=== PATIENT | female | born 1935 | race Caucasian/White ===

== ENCOUNTER 2017-11-08 23:00 | Outpatient (CLI) | END 2017-11-08 23:01 | disposition home or self-care (01) | LOC: AMBL 23:00 | PROVIDERS: ATTEND Family Medicine | DX: R19.7 Diarrhea, unspecified (principal); R07.9 Chest pain, unspecified; F03.90 Unspecified dementia, unspecified severity, without behavioral disturbance, psychotic disturbance, mood disturbance, and anxiety ==

== ENCOUNTER 2018-03-03 09:23 | Emergency (ER) | payer OTHER ==
[2018-03-03 09:38] VITALS: BP 156/84; TEMP 97.5; BMI 23.1
--- NOTE | 2018-03-03 09:49 | ED.PDOC ---
General ED Provider: Dr. ITALIA GONZALEZ Chief Complaint: Fall Stated Complaint: Facial forehead pain. Patient resides AT [facility]. 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 Patient suffers from dementia and is unsure of what happened to her. She denies pain. Time Seen by Physician: 09:35 Mode of Arrival: Walk-In Information Source: Patient, Family Exam Limitations: No limitations, Clinical condition, Dementia Primary Care Provider: ITALIA CARRERA Nursing and Triage Documentation Reviewed and Agree: Yes Reviewed sepsis parameters & appropriate labs ordered?: Yes System Inflammatory Response Syndrome: Not Applicable Sepsis Protocol: For patient's 13 years and over: Temp is 96.8 and below OR 101 and greater Pulse >90 BPM Resp >20/minute Acutely Altered Mental Status Are patient's symptoms suggestive of a new infection, such as: -Pneumonia -Skin, Soft Tissue -Endocarditis -UTI -Bone, Joint Infection -Implantable Device -Acute Abdominal Infection -Wound Infection -Meningitis -Blood Stream Catheter Infection -Unknown System Inflammatory Response Syndrome: Not Applicable Trauma/Injury Complaint Exam - Facial Injury Complaint/Exam Location of Pain: Reports: Left, Forehead, Eyebrow, Nose Mechanism of Injury: Reports: Trauma Symptoms Are: Still present Onset of Pain: Reports: Prior to arrival Initial Severity: Moderate Current Severity: Moderate Location: Reports: Discrete Character: Reports: Unable to describe (Denies pain ) Associated Signs and Symptoms: Reports: Swelling, Bruising Related History: Denies: Similar episode, Occupational injury Related Surgical History: Reports: None Facial Findings: Present: Swelling, Ecchymosis Differential Diagnoses: Contusion, Fracture Review of Systems - Review Of Systems Constitutional: Reports: No symptoms Eyes: Reports: Other (Lt orbital swelling and discomfort) Ears, Nose, Mouth, Throat: Reports: No symptoms, Nose pain Respiratory: Reports: No symptoms Cardiac: Reports: No symptoms GI: Reports: No symptoms : Reports: No symptoms Musculoskeletal: Reports: No symptoms Skin: Reports: No symptoms Neurological: Reports: Cognitive dysfunction Endocrine: Reports: No symptoms Hematologic/Lymphatic: Reports: No symptoms All Other Systems: Reviewed and Negative Past Medical History - Past Medical History Previously Healthy: Yes Endocrine: Reports: None Cardiovascular: Reports: None Respiratory: Reports: None Hematological: Reports: None Gastrointestinal: Reports: None Genitourinary: Reports: None Neuro/Psych: Reports: None Musculoskeletal: Reports: None Cancer: Reports: None Last Menstrual Period: NONE - Surgical History General Surgical History: Reports: None - Family History Family History: Reports: None - Social History Smoking Status: Never smoker Hx Substance Use: No Alcohol Screening: None Physical Exam - Physical Exam Appearance: Well-appearing, No pain distress, Well-nourished Ill-appearing: None Pain Distress: None Eyes: PIPPA (Lt periorbital edema, supraorbital edema-tenderness, ecchymoses to upper/lower eyebrow), EOMI, Conjunctiva clear ENT: Ears normal, Nose normal, Oropharynx normal Respiratory: Airway patent, Breath sounds clear, Breath sounds equal, Respirations nonlabored Cardiovascular: RRR, Pulses normal, No rub, No murmur GI/: Soft, Nontender, No masses, Bowel sounds normal, No Organomegaly Musculoskeletal: Normal strength, ROM intact, No edema, No calf tenderness Skin: Warm, Dry, Normal color Neurological: Sensation intact, Motor intact, Reflexes intact, Cranial nerves intact, Alert, Oriented Psychiatric: Affect appropriate, Mood appropriate Interpretation - Radiology Interpretation Radiology Results: No acute changes (forehead swelling -contusion) Exam Interpreted: CT Scan Critical Care Note - Critical Care Note Total Time (mins): 30 Course - Course Hematology/Chemistry: 03/03/18 10:10 03/03/18 10:10 Orders, Labs, Meds: Lab Review 03/03/18 03/03/18 10:10 10:10 WBC 10.23 H RBC 3.60 L Hgb 10.8 L Hct 33.5 L MCV 93.1 MCH 30.0 MCHC 32.2 RDW Coeff of Zena 17.6 H Plt Count 153 Immature Gran % (Auto) 2.7 Neut % (Auto) 76.4 Lymph % (Auto) 15.9 [place] % (Auto) 4.1 Eos % (Auto) 0.1 Baso % (Auto) 0.8 Immature Gran # (Auto) 0.3 Neut # (Auto) 7.8 H Lymph # (Auto) 1.6 [place] # (Auto) 0.4 Eos # (Auto) 0.0 Baso # (Auto) 0.1 Sodium 141 Potassium 3.8 Chloride 105 Carbon Dioxide 25 Anion Gap 14.8 BUN 14 Creatinine 0.86 Estimated GFR (MDRD) 63.00 BUN/Creatinine Ratio 16.27 Glucose 138 H Calcium 9.5 Total Bilirubin 0.4 AST 18 ALT 12 Alkaline Phosphatase 79 Total Protein 7.2 Albumin 3.5 Globulin 3.7 Albumin/Globulin Ratio 0.95 Orders Category Date Time Status EKG-(ED ONLY) Stat CARDIO 03/03/18 09:49 Completed CBC W/ AUTO DIFF Stat LAB 03/03/18 10:10 Completed CMP [COMPREHENSIVE METABOLIC PANEL] Stat LAB 03/03/18 10:10 Completed UA [URINALYSIS C & S IF INDICATED] Stat LAB 03/03/18 09:[address] CERVICAL SPINE W/O CONTRAST Stat RADS 03/03/18 10:[address] HEAD W/O CONTRAST Stat RADS 03/03/18 10:[address] MAXILLOFACIAL W/O CONTRAST Stat RADS 03/03/18 10:16 Completed Vital Signs: Temp Pulse Resp BP Pulse Ox 03/03/18 09:23 97.5 F L 92 H 18 156/84 H 96 Departure - Departure Time of Disposition: 11:20 Disposition: DISCH/TSF INST NOT DEFINED Discharge Problem: Forehead contusion, Periorbital contusion of right eye, Periorbital contusion of left eye, Dementia Instructions: Fall Prevention for Older Adults (ED), Contusion in Adults (ED) Condition: Fair Pt referred to PMD for follow-up: Yes IPMP verified?: No Additional Instructions: Monitor patient when in her room alone q 30 min - 1 hr if possible Consider wireless monitor Ice to area of contusion Follow up PCP Allergies/Adverse Reactions: Allergies No Known Allergies Allergy (Verified 03/03/18 09:34) Home Medications: Ambulatory Orders Levothyroxine Sodium [Synthroid] 50 mcg PO QDAC 03/03/18 Memantine HCl [Namenda Xr] 28 mg PO DAILY 03/03/18 Mirtazapine [Remeron] 15 mg PO BEDTIME 03/03/18 Transfer Form Completed: No (N/I) Disposition Discussed With: Patient, Family
--- NOTE | 2018-03-03 10:44 | CT ---
EXAM: CT of the head without contrast History: Head trauma. Technique: Multiplanar CT images through the head were obtained without the administration of IV con trast Findings: The visualized paranasal sinuses and mastoid air cells are clear in general. No acute rosie varial abnormality. Large left frontal scalp hematoma. Intracranially there is diffuse atrophy. No dominant mass or midline shift. No hydrocephalous. No acute intracranial hemorrhage or abnormal extraaxial fluid collections. Periventricular and subcorti rosie white matter hypodensities. Impression: 1. No acute intracranial process. 2. Atrophy and chronic small vessel ischemic disease. 3. Large frontal scalp hematoma.
--- NOTE | 2018-03-03 10:46 | CT ---
EXAM: CT maxillofacial region without contrast History: Facial trauma. Technique: Multiplanar CT images through the maxillofacial region were obtained without the administ ration of IV contrast Findings: Large frontal scalp hematoma. Orbits are intact. The visualized intracranial contents de monstrate no acute findings. Paranasal sinuses are clear. Bilateral ostiomeatal units are not occlu ded. No acute fracture or dislocation. Degenerative changes of the bilateral temporomandibular join ts and worse on the right. Mastoid air cells are clear. Impression: 1. No acute osseous abnormality. 2. Clear paranasal sinuses. 3. Large frontal scalp hematoma.
--- NOTE | 2018-03-03 10:50 | CT ---
EXAM: CT of the cervical spine without contrast History: Head and neck trauma. Technique: Multiplanar CT images through the cervical spine were obtained without the administration of IV contrast Findings: Biapical lung scarring. The visualized airway remains patent. Reversal of the normal cervical lordosis. No acute fracture or subluxation of the cervical spine. N o prevertebral soft tissue swelling. Predental space is not widened. Moderate to severe multilevel degenerative disc space narrowing with endplate sclerosis and osteophyte formation. Mild multilevel bony central canal stenosis secondary to posterior disc osteophyte complexes. Multilevel bilateral b kate neural foraminal narrowing secondary to uncovertebral and facet hypertrophy. Impression: No acute osseous abnormality of the cervical spine. Degenerative changes
== END 2018-03-03 11:46 | disposition other institution (70) ==
LOC: ED 09:23
DX: S00.83XA Contusion of other part of head, initial encounter (principal); S00.12XA Contusion of left eyelid and periocular area, initial encounter; S00.11XA Contusion of right eyelid and periocular area, initial encounter; S00.33XA Contusion of nose, initial encounter; F03.90 Unspecified dementia, unspecified severity, without behavioral disturbance, psychotic disturbance, mood disturbance, and anxiety; D64.9 Anemia, unspecified
CPT/HCPCS: 36415; 80053; 81001; 85025; 93005; 93010; 99283

== ENCOUNTER 2018-10-06 04:55 | Outpatient (CLI) ==
[2018-04-14 12:36] VITALS: BMI 23.1
== END 2018-10-06 05:09 | disposition short-term general hospital (02) ==
LOC: AMBL 04:55
PROVIDERS: ATTEND Family Medicine
DX: S01.81XA Laceration without foreign body of other part of head, initial encounter (principal); F03.90 Unspecified dementia, unspecified severity, without behavioral disturbance, psychotic disturbance, mood disturbance, and anxiety; W19.XXXA Unspecified fall, initial encounter

== ENCOUNTER 2021-10-05 10:02 | Inpatient (IN) ==
--- NOTE | 2021-10-05 10:30 | ED.PDOC ---
General ED Provider: Dr. JUANI HICKMAN Chief Complaint: Fever Stated Complaint: Fever, weak, cough, poor appetite. Has had her vaccines. Lives in assisted living. DNR. Time Seen by Provider: 10/05/21 10:30 Mode of Arrival: Wheelchair Information Source: Patient and Family (Niece (POA)) Exam Limitations: Dementia Primary Care Provider: ITALIA MARAVILLA Nursing and Triage Documentation Reviewed and Agree: Yes Does patient meet sepsis criteria?: No System Inflammatory Response Syndrome: Not Applicable Sepsis Protocol: For patient's 13 years and over: Temp is 96.8 and below OR 101 and greater Pulse >90 BPM Resp >20/minute Acutely Altered Mental Status Are patient's symptoms suggestive of a new infection, such as: -Pneumonia -Skin, Soft Tissue -Endocarditis -UTI -Bone, Joint Infection -Implantable Device -Acute Abdominal Infection -Wound Infection -Meningitis -Blood Stream Catheter Infection -Unknown Respiratory Complaint Exam Respiratory Complaint/Exam Onset/Duration: Few days Symptoms Are: Still present Timing: Constant Initial Severity: Moderate Current Severity: Moderate Location: Chest Character: Reports Non-productive cough Aggravating: Reports None Alleviating: Reports None Associated Signs and Symptoms: Reports Fever and Vomiting History of Healthcare-Acquired Pneumonia: No Related Surgical History: Reports None Pulmonary Embolism Risk Factors: None Pseudomonas Risk Factors: Reports None Tuberculosis Risk Factors: Reports None Status Asthmaticus Risk Factors: Reports None Home Oxygen Use: Yes Recent Stress Test: No Recent Echo/LV Function: No Current Antibiotic Use: No Current Asthma Medication Use: No Respiratory Distress: Mild Inadequate Respiratory Effort: No Dysphagia Present: No Stridor Present: No Diminished Breath Sounds: Yes Sinus Tenderness: None Grunting Respirations: No Kussmaul Respirations: No Review of Systems Review Of Systems Constitutional: Reports Malaise and Weakness Ears, Nose, Mouth, Throat: Reports No symptoms Respiratory: Reports Cough Cardiac: Reports No symptoms GI: Reports Nausea and Poor appetite : Reports No symptoms Musculoskeletal: Reports No symptoms Skin: Reports No symptoms Neurological: Reports No symptoms and Cognitive dysfunction Endocrine: Reports No symptoms Hematologic/Lymphatic: Reports No symptoms All Other Systems: Reviewed and Negative [facility] Medical History (Updated 10/05/21 @ 15:30 by KWASI KIDD RN) Thyroid activity decreased Social History (Updated 10/05/21 @ 15:30 by KWASI KIDD RN) Smoking and tobacco status: Never smoker Surgical History (Updated 10/05/21 @ 15:30 by KWASI KIDD RN) H/O: hysterectomy Female Reproductive History Menstrual Hx Hysterectomy: No Hx Tubal Ligation: No Physical Exam Physical Exam Appearance: Reports Ill-appearing and Thin Ill-appearing: Moderate Pain Distress: None Eyes: Reports PIPPA ENT: Reports Oropharynx normal Neck: Supple Respiratory: Reports Airway patent and Rhonchi Cardiovascular: Reports RRR and Pulses normal GI/: Reports Soft and Nontender Musculoskeletal: Reports Normal strength (for age) and ROM intact Skin: Reports Warm and Dry Neurological: Reports Sensation intact, Motor intact and Alert (baseline dementia without change per POA) Psychiatric: Reports Affect appropriate and Mood appropriate Interpretation Radiology Interpretation Radiology Interpretation By: Radiologist Radiology Results: Positive Exam Interpreted: Portable CXR Xray Comments: LLL infiltrate Radiology Interpretation By: Radiologist Radiology Results: Positive Exam Interpreted: CT Scan Xray Comments: abd/pel - neg except LLL pneumonia EKG Interpretation Time of EKG #1: 14:34 Rate: Normal Rhythm: Sinus Ectopy: None [place]: NL ST Segment: Normal Interpretation: WNL Physician Notification Case Discussed Physician Notified: Dr. Maravilla Time of Notification: 14:00 Comments: Admit with IV abx. Admit/Transition Orders Entered by ED Provider: Yes Admit To: Inpatient Critical Care Note Critical Care Note Total Critical Care Time (mins): 30 Comments: Severe infection with pneumonia. Course Course Hematology/Chemistry: 10/05/21 10:55 10/05/21 10:55 Orders, Labs, Meds: Lab Review 10/05/21 10/05/21 10/05/21 10:40 10:40 10:55 WBC 47.61 H RBC 3.25 L Hgb 9.7 L Hct 29.6 L MCV 91.1 MCH 29.8 MCHC 32.8 RDW Coeff of Zena 17.9 H Plt Count 247 Neutrophils % (Manual) 82.0 H Band Neutrophils % 4.0 Lymphocytes % (Manual) 6.0 L Monocytes % (Manual) 6.0 Myelocytes % 2.0 H Anisocytosis Not present Sodium Potassium Chloride Carbon Dioxide Anion Gap BUN Creatinine Estimated GFR (MDRD) BUN/Creatinine Ratio Glucose Lactic Acid Calcium Total Bilirubin AST ALT Alkaline Phosphatase Total Protein Albumin Globulin Albumin/Globulin Ratio Procalcitonin Urine Color Urine Clarity Urine pH Ur Specific [place] Urine Protein Urine Glucose (UA) Urine Ketones Urine Blood Urine Nitrite Urine Bilirubin Urine Urobilinogen Ur Leukocyte Esterase Influ A Molecular Assay Negative by naat Influ B Molecular Assay Negative by naat SARS CoV-2 RNA Rapid TADEO Negative 10/05/21 10/05/21 10/05/21 10:55 10:55 10:55 WBC RBC Hgb Hct MCV MCH MCHC RDW Coeff of Zena Plt Count Neutrophils % (Manual) Band Neutrophils % Lymphocytes % (Manual) Monocytes % (Manual) Myelocytes % Anisocytosis Sodium 136.9 Potassium 3.80 Chloride 104.2 Carbon Dioxide 25.2 Anion Gap 11.30 BUN 11.0 Creatinine 0.92 Estimated GFR (MDRD) 58.00 BUN/Creatinine Ratio 11.95 Glucose 122.5 H Lactic Acid 1.93 Calcium 8.84 Total Bilirubin 0.63 AST 28.9 ALT 21.5 Alkaline Phosphatase 110.5 Total Protein 6.97 Albumin 3.74 Globulin 3.23 Albumin/Globulin Ratio 1.15 Procalcitonin 0.31 H Urine Color Urine Clarity Urine pH Ur Specific [place] Urine Protein Urine Glucose (UA) Urine Ketones Urine Blood Urine Nitrite Urine Bilirubin Urine Urobilinogen Ur Leukocyte Esterase Influ A Molecular Assay Influ B Molecular Assay SARS CoV-2 RNA Rapid TADEO 10/05/21 11:55 WBC RBC Hgb Hct MCV MCH MCHC RDW Coeff of Zena Plt Count Neutrophils % (Manual) Band Neutrophils % Lymphocytes % (Manual) Monocytes % (Manual) Myelocytes % Anisocytosis Sodium Potassium Chloride Carbon Dioxide Anion Gap BUN Creatinine Estimated GFR (MDRD) BUN/Creatinine Ratio Glucose Lactic Acid Calcium Total Bilirubin AST ALT Alkaline Phosphatase Total Protein Albumin Globulin Albumin/Globulin Ratio Procalcitonin Urine Color Yellow Urine Clarity Clear Urine pH 6.0 Ur Specific [place]bilt <=1.005 Urine Protein Negative Urine Glucose (UA) Negative Urine Ketones Negative Urine Blood Negative Urine Nitrite Negative Urine Bilirubin Negative Urine Urobilinogen 1.0 H Ur Leukocyte Esterase Negative Influ A Molecular Assay Influ B Molecular Assay SARS CoV-2 RNA Rapid TADEO Orders Category Date Time Status ADMIT PATIENT INPATIENT .TO MEDSURG (NON-MONITORED ADMISSION 10/05/21 13:19 Active BED) EKG-(IP & OP ONLY) Stat CARDIO 10/05/21 13:22 Completed NEBULIZER TREATMENT Routine CARDIO 10/05/21 13:25 Active SPUTUM INDUCTION PRN CARDIO 10/05/21 13:30 Ordered ACTIVITY .Up With Assistance CARE 10/05/21 13:21 Completed INTAKE & OUTPUT Q8HR CARE 10/05/21 13:22 Completed REMINDER:Breath Sounds&Sputum Production BID CARE 10/05/21 13:22 Active VITAL SIGNS Q8HR CARE 10/05/21 13:22 Active REGULAR DIET DIETARY 10/05/21 Dinner Ordered BLOOD CULTURE (ED ONLY) Stat LAB 10/05/21 12:42 Received BMP [BASIC METABOLIC PANEL] Stat LAB 10/06/21 06:00 Ordered C-REACTIVE PROTEIN Stat LAB 10/05/21 10:55 Received CBC W/ AUTO DIFF Stat LAB 10/05/21 10:55 Completed CBC W/ AUTO DIFF Stat LAB 10/06/21 06:00 Ordered COMPREHENSIVE METABOLIC PANEL Stat LAB 10/05/21 10:55 Completed FLU A/B MOLECULAR Stat LAB 10/05/21 10:40 Completed LACTIC ACID Stat LAB 10/05/21 10:55 Completed MANUAL DIFFERENTIAL Stat LAB 10/05/21 10:55 Completed PROCALCITONIN Stat LAB 10/05/21 10:55 Completed SARS COV-2 RNA RAPID TADEO Stat LAB 10/05/21 10:40 Completed URINALYSIS C & S IF INDICATED Stat LAB 10/05/21 11:55 Completed Albuterol Sulfate 0.083% Neb [Albuterol 0.083% Neb] MEDS 10/05/21 13:21 Active 2.5 mg NEB RTQ6H PRN Piperacillin Sodium/Tazobactam [Zosyn 3.375 gm] 3.375 MEDS 10/05/21 13:04 Discontinued gm 0.9 % Sodium Chloride [Sodium Chloride] 50 ml IV ONCE Sodium Chloride 0.9% [Sodium Chloride] 1,000 ml MEDS 10/05/21 10:37 Discontinued IV 250 mls/hr Sodium Chloride 0.9% [Sodium Chloride] 1,000 ml MEDS 10/05/21 13:30 Active IV 75 mls/hr Vancomycin 1 gm MEDS 10/05/21 13:27 Discontinued 0.9 % Sodium Chloride [Sodium Chloride] 250 ml IV ONCE CHEST, 1V AP ONLY Stat RADS 10/05/21 10:37 Completed Medications Generic Name Dose Route Start Last Admin Trade Name Freq PRN Reason Stop Dose Admin Albuterol Sulfate 2.5 mg 10/05/21 13:21 Albuterol Sulfate 0.083% Vial.Neb NEB RTQ6H PRN Wheezing Divalproex Sodium 250 mg 10/05/21 21:00 Divalproex Sodium 250 Mg Tablet. PO BID LEE ANN Sodium Chloride 1,000 mls @ 75 mls/hr 10/05/21 13:30 10/05/21 18:46 Sodium Chloride IV 75 mls/hr .[id number] LEE ANN Administration Vancomycin HCl 1 gm/ Sodium 250 mls @ 250 mls/hr 10/06/21 09:00 Chloride IV 10/09/21 08:59 DAILY LEE ANN CEFEPIME 2 GM/D5W 2 gm in 50 mls @ 100 mls/hr 10/05/21 21:00 Maxipime 2 Gm/50 Ml D5w IV 10/08/21 20:59 Q12HR LEE ANN Levothyroxine Sodium 50 mcg 10/06/21 06:30 Levothyroxine Sodium 50 Mcg Tablet PO QDAC LEE ANN Non-Formulary Medication 20 mg 10/05/21 21:00 Melatonin PO BEDTIME LEE ANN Pantoprazole Sodium 40 mg 10/05/21 21:00 Pantoprazole Sodium 40 Mg Tablet. PO BEDTIME LEE ANN Quetiapine Fumarate 25 mg 10/05/21 15:00 10/05/21 17:07 Quetiapine Fumarate 25 Mg Tablet PO Not Given TID LEE ANN Trazodone HCl 50 mg 10/05/21 21:00 Trazodone Hcl 50 Mg Tablet PO BEDTIME LEE ANN Discontinued Medications Generic Name Dose Route Start Last Admin Trade Name Freq PRN Reason Stop Dose Admin Sodium Chloride 1,000 mls @ 250 mls/hr 10/05/21 10:37 10/05/21 11:09 Sodium Chloride IV 10/05/21 14:36 250 mls/hr .Q4H STA Administration Piperacillin Sod/Tazobactam 50 mls @ 50 mls/hr 10/05/21 13:04 10/05/21 13:10 Sod 3.375 gm/ Sodium Chloride IV 10/05/21 14:03 50 mls/hr ONCE ONE Administration Vancomycin HCl 1 gm/ Sodium 250 mls @ 250 mls/hr 10/05/21 13:27 10/05/21 15:32 Chloride IV 10/05/21 14:26 250 mls/hr ONCE ONE Administration Lorazepam 0.5 mg 10/05/21 14:12 10/05/21 14:19 Lorazepam Inj 2 Mg/Ml Vial IVP 10/05/21 14:13 0.5 mg ONCE ONE Administration Non-Formulary Medication 3 mg 10/05/21 21:00 Melatonin PO BEDTIME LEE ANN Vital Signs: Temp Pulse Resp BP Pulse Ox 10/05/21 10:03 98.4 F 69 18 111/55 L 98 Discharge Plan Discharge Patient Disposition: ADMITTED INPATIENT Discharge Problem: Pneumonia Qualifiers: Pneumonia type: due to unspecified organism Laterality: left Lung location: lower lobe of lung Qualified Code(s): J18.9 - Pneumonia, unspecified organism Leukocytosis, unspecified Qualifiers: Leukocytosis type: unspecified Qualified Code(s): D72.829 - Elevated white blood cell count, unspecified ED Provider: JUANI HICKMAN Condition: Stable Physician Progress Note: Pneumonia, COVID neg, marked leukocytosis (47 K), so high that consider a leukemia in addition to the pneumonia. See orders. ]
[2021-10-05] MEDS ORDERED: SODIUM CHLORIDE 1,000 ML IV STA (10:37)
[2021-10-05 11:04] LABS: HEMATOCRIT 29.6 % (37.0-47.0); HEMOGLOBIN 9.7 g/dl (12.0-16.0); MEAN CORPUSCULAR HEMOGLOBIN 29.8 pg (27.0-31.0); MEAN CORPUSCULAR HGB CONC 32.8 (31.8-35.4); MEAN CORPUSCULAR VOLUME 91.1 fl (81.0-99.0); PLATELET COUNT 247 10^3/uL (140-440); RDW COEFFICIENT OF VARIATION 17.9 % (11.6-14.8); RED BLOOD COUNT 3.25 10^6/ul (4.20-5.40); WHITE BLOOD COUNT 47.61 K/ul (4.6-10.2)
[2021-10-05 11:14] LABS: ALANINE AMINOTRANSFERASE 21.5 U/L (0-35); ALBUMIN 3.74 g/dL (3.5-5.0); ALKALINE PHOSPHATASE 110.5 U/L (53-141); ASPARTATE AMINO TRANSFERASE 28.9 U/L (14-36); BILIRUBIN,TOTAL 0.63 mg/dL (0.2-1.3); CALCIUM 8.84 mg/dL (8.4-10.2); CARBON DIOXIDE 25.2 mmol/L (22-30.0); CHLORIDE 104.2 mmol/L (98-107); CREATININE 0.92 mg/dL (0.60-1.30); GLUCOSE 122.5 mg/dL (74-106); POTASSIUM 3.8 mmol/L (3.5-5.1); SODIUM 136.9 mmol/L (134.5-145); TOTAL PROTEIN 6.97 g/dL (6.3-8.2)
[2021-10-05 11:19] LABS: ANISOCYTOSIS NOT PRESENT (NOT PRESENT)
[2021-10-05 11:35] LABS: MOLECULAR FLU A NEGATIVE BY NAAT (NEGATIVE); MOLECULAR FLU B NEGATIVE BY NAAT (NEGATIVE)
--- NOTE | 2021-10-05 12:03 | DI ---
EXAM: CHEST FRONTAL VIEW HISTORY: Cough COMPARISON: 03/02/2021 FINDINGS: Prominent heart size is stable. There is mild density in the left base which could repres ent regional pneumonia. No vascular congestion, visible pleural fluid or pneumothorax. IMPRESSION: 1. Mild density in the left base could represent pneumonia.
[2021-10-05 12:08] LABS: BILIRUBIN,URINE Negative (NEGATIVE); CLARITY,URINE Clear (CLEAR); COLOR,URINE Yellow (YELLOW); GLUCOSE, URINE (UA) Negative (NEGATIVE); KETONES,URINE Negative (NEGATIVE); LEUKOCYTE ESTERASE ,URINE Negative (NEGATIVE); NITRITE,URINE Negative (NEGATIVE); PROTEIN,URINE Negative (NEGATIVE); URINE, BLOOD Negative (NEGATIVE)
[2021-10-05] MEDS ORDERED: ROCEPHIN 1 GM/50 ML D5W 1 GM/50 ML BAG IV ONE (12:49)
[2021-10-05] MEDS ORDERED: CATAPRES PO ONE (12:59)
[2021-10-05] MEDS ORDERED: ZOSYN 3.375 GM 3.375 GM in SODIUM CHLORIDE 50 ML IV ONE (13:04)
[2021-10-05] MEDS ORDERED: ALBUTEROL 0.083% NEB NEB PRN (13:21)
[2021-10-05] MEDS ORDERED: VANCOMYCIN 1 GM in SODIUM CHLORIDE 250 ML IV ONE (13:27)
[2021-10-05 13:59] LABS: RSV MOLECULAR NEGATIVE BY NAAT (NEGATIVE)
[2021-10-05] MEDS ORDERED: ATIVAN IVP ONE (14:12)
[2021-10-05] MEDS ORDERED: ATIVAN 1 ML ONE (14:14)
--- NOTE | 2021-10-05 14:48 | CT ---
EXAM: CT ABDOMEN AND PELVIS HISTORY: Vomiting and diarrhea TECHNIQUE: CT abdomen and pelvis without intravenous contrast. Images were reconstructed using 3 mm section thickness. Reformations were prepared. COMPARISON: 08/25/2019 FINDINGS: Diagnostic limitations exist without including intravenous contrast enhanced images. Artifact from t he upper extremities remaining within the scanning field of view and motion degrades image quality. The there is a stable 17 mm water attenuation lesion of the anterior right hepatic lobe most consiste nt with a cyst. Spleen is within normal limits. No gallbladder, pancreatic or adrenal pathology arcelia ntified. Kidneys have a no evidence of obstruction or calculi. There is mild to moderate atheroscle rotic disease. No lymphadenopathy is suggested. Stomach is within normal limits. An appendix is no t seen. Nonobstructive bowel gas pattern. Urinary bladder is normal. No uterus is seen. A there i s no ascites or inflammatory infiltration of the abdominal fat. No abdominal wall hernia. Bones rev eal moderate degenerative changes of the spine. Lung bases demonstrate scattered mass-like consolida tions with otherwise patchy infiltrates. Probable tiny left pleural effusion. There is no pneumoper itoneum. IMPRESSION: 1. Lung bases demonstrate scattered mass-like consolidations with otherwise patchy infiltrates. Thi s is consistent with pneumonia. Probable tiny left pleural effusion. Follow-up CT thorax is recomme nded. 2. Nonobstructive bowel gas pattern. No acute intra-abdominal or pelvic abnormality identified. 3. Atherosclerotic disease. - - - - - All CT scans are performed using dose optimization techniques as appropriate to the performed exam an d include at least one of the following: Automated exposure control, adjustment of the mA and/or kV according t o size, and the use of iterative reconstruction technique.
[2021-10-05 15:27] VITALS: BMI 20.2
[2021-10-05] MEDS: SEROQUEL PO SCH ×2 (17:07→21:23)
[2021-10-05] MEDS: SODIUM CHLORIDE 1,000 ML IV SCH (18:46)
[2021-10-05] MEDS ORDERED: NON-FORMULARY MEDICATION (Melatonin 3 mg Tablet) PO SCH (21:00)
[2021-10-05] MEDS ORDERED: NON-FORMULARY MEDICATION (Melatonin 20 MG) PO SCH (21:00)
[2021-10-05] MEDS: DEPAKOTE PO SCH (21:23)
[2021-10-05] MEDS: MAXIPIME 2 GM/50 ML D5W 2 GM/50 ML BAG IV SCH (21:23)
[2021-10-05] MEDS: DESYREL PO SCH (21:23)
[2021-10-05] MEDS: PROTONIX PO SCH (21:23)
[2021-10-06] MEDS: SYNTHROID PO SCH (06:02)
[2021-10-06 06:12] LABS: HEMATOCRIT 27.1 % (37.0-47.0); HEMOGLOBIN 8.7 g/dl (12.0-16.0); MEAN CORPUSCULAR HEMOGLOBIN 29.6 pg (27.0-31.0); MEAN CORPUSCULAR HGB CONC 32.1 (31.8-35.4); MEAN CORPUSCULAR VOLUME 92.2 fl (81.0-99.0); PLATELET COUNT 237 10^3/uL (140-440); RDW COEFFICIENT OF VARIATION 17.9 % (11.6-14.8); RED BLOOD COUNT 2.94 10^6/ul (4.20-5.40); WHITE BLOOD COUNT 31.12 K/ul (4.6-10.2)
[2021-10-06 06:29] LABS: BLOOD UREA NITROGEN 9.9 mg/dL (7-17); CALCIUM 8.07 mg/dL (8.4-10.2); CHLORIDE 112.1 mmol/L (98-107); CREATININE 0.81 mg/dL (0.60-1.30); GLUCOSE 104.4 mg/dL (74-106); POTASSIUM 3.41 mmol/L (3.5-5.1); SODIUM 138.8 mmol/L (134.5-145)
[2021-10-06 07:00] LABS: ANISOCYTOSIS NOT PRESENT (NOT PRESENT)
[2021-10-06] MEDS: SEROQUEL PO SCH ×3 (08:28→20:29)
[2021-10-06] MEDS: DEPAKOTE PO SCH ×2 (08:28→20:28)
[2021-10-06] MEDS: MAXIPIME 2 GM/50 ML D5W 2 GM/50 ML BAG IV SCH ×2 (08:29→20:27)
[2021-10-06] MEDS: VANCOMYCIN 1 GM in SODIUM CHLORIDE 250 ML IV SCH (10:57)
[2021-10-06] MEDS: SODIUM CHLORIDE 1,000 ML IV SCH (15:05)
[2021-10-06] MEDS: NON-FORMULARY MEDICATION (Melatonin 20 MG) PO SCH (20:15)
[2021-10-06] MEDS: PROTONIX PO SCH (20:27)
[2021-10-06] MEDS: DESYREL PO SCH (20:28)
[2021-10-06] MEDS: ATIVAN PO SCH (20:29)
[2021-10-07] MEDS: SODIUM CHLORIDE 1,000 ML IV SCH (04:26)
[2021-10-07] MEDS: SYNTHROID PO SCH (05:43)
[2021-10-07 05:58] LABS: HEMATOCRIT 25.7 % (37.0-47.0); HEMOGLOBIN 8.2 g/dl (12.0-16.0); MEAN CORPUSCULAR HEMOGLOBIN 29.5 pg (27.0-31.0); MEAN CORPUSCULAR HGB CONC 31.9 (31.8-35.4); MEAN CORPUSCULAR VOLUME 92.4 fl (81.0-99.0); PLATELET COUNT 241 10^3/uL (140-440); RED BLOOD COUNT 2.78 10^6/ul (4.20-5.40); WHITE BLOOD COUNT 24.93 K/ul (4.6-10.2)
[2021-10-07 06:19] LABS: BLOOD UREA NITROGEN 5.6 mg/dL (7-17); CALCIUM 7.9 mg/dL (8.4-10.2); CARBON DIOXIDE 21.7 mmol/L (22-30.0); CHLORIDE 111.6 mmol/L (98-107); CREATININE 0.71 mg/dL (0.60-1.30); GLUCOSE 100.7 mg/dL (74-106); POTASSIUM 3.09 mmol/L (3.5-5.1); SODIUM 139.3 mmol/L (134.5-145)
[2021-10-07 06:48] LABS: ANISOCYTOSIS NOT PRESENT (NOT PRESENT)
[2021-10-07] MEDS: SEROQUEL PO SCH ×3 (08:30→20:41)
[2021-10-07] MEDS: DEPAKOTE PO SCH (08:30)
[2021-10-07] MEDS: MAXIPIME 2 GM/50 ML D5W 2 GM/50 ML BAG IV SCH ×2 (08:31→20:41)
[2021-10-07] MEDS: LOVENOX SUBCUT SCH (08:35)
[2021-10-07] MEDS: VANCOMYCIN 1 GM in SODIUM CHLORIDE 250 ML IV SCH (10:27)
[2021-10-07] MEDS ORDERED: ATIVAN PO PRN (17:10)
--- NOTE | 2021-10-07 17:17 | PCM ---
Chief Complaint Chief Complaint: she is coughing with fever and diarrhea and not eating History of Present Illness History of Present Illness: This is an 86 year old lady with hx of severe dementia, resident of assisted living who presented to the ed with her poa with cough, fever, and poor appetite. Review of Systems Constitutional: Reports Fever, Chills, Weakness, Fatigue and Loss of appetite Eyes: Reports No symptoms Ears: Reports No symptoms Nose: Reports No symptoms Throat: Reports No symptoms Mouth: Reports No symptoms Respiratory: Reports Cough Cardiovascular: Reports No symptoms Gastrointestinal: Reports No symptoms Genitourinary: Reports No symptoms Neurological: Reports Weakness Musculoskeletal: Reports No symptoms Skin: Reports No symptoms Immunology: Reports No symptoms Hematology: Reports No symptoms Endocrine: Reports No symptoms Psychiatric: Reports Anxiety Habits: Denies Tobacco use, Substance use, Alcohol use or Other Allergies Allergies Allergy/AdvReac Type Severity Reaction Status Date / Time No Known Allergies Allergy Verified 10/05/21 10:34 PFSH Medical History Thyroid activity decreased Surgical History H/O: hysterectomy Social History Smoking and tobacco status: Never smoker Medications Medications: Medications Generic Name Dose Route Start Last Admin Trade Name Freq PRN Reason Stop Dose Admin Albuterol Sulfate 2.5 mg 10/05/21 13:21 Albuterol Sulfate 0.083% Vial.Neb NEB RTQ6H PRN Wheezing Enoxaparin Sodium 30 mg 10/07/21 09:00 10/07/21 08:35 Enoxaparin Sodium 30 Mg/0.3 Ml Syr SUBCUT 30 mg DAILY LEE ANN Administration Vancomycin HCl 1 gm/ Sodium 250 mls @ 250 mls/hr 10/06/21 09:00 10/07/21 10:27 Chloride IV 10/09/21 08:59 250 mls/hr DAILY LEE ANN Administration CEFEPIME 2 GM/D5W 2 gm in 50 mls @ 100 mls/hr 10/05/21 21:00 10/07/21 08:31 Maxipime 2 Gm/50 Ml D5w IV 10/08/21 20:59 100 mls/hr Q12HR LEE ANN Administration Potassium Chloride/Dextrose/Sod Cl 1,000 mls @ 42 mls/hr 10/07/21 17:30 D5%-Ns-Kcl 20 Meq/L Iv Aidee IV .[id number] LEE ANN Levothyroxine Sodium 50 mcg 10/06/21 06:30 10/07/21 05:43 Levothyroxine Sodium 50 Mcg Tablet PO 50 mcg QDAC LEE ANN Administration Lorazepam 1 mg 10/06/21 21:00 10/06/21 20:29 Lorazepam 1 Mg Tablet PO 1 mg BEDTIME LEE ANN Administration Lorazepam 0.5 mg 10/07/21 17:10 Lorazepam 0.5 Mg Tablet PO DAILY PRN Anxiety Non-Formulary Medication 20 mg 10/06/21 21:00 10/06/21 20:15 Melatonin PO 20 mg BEDTIME LEE ANN Administration Pantoprazole Sodium 40 mg 10/05/21 21:00 10/06/21 20:27 Pantoprazole Sodium 40 Mg Tablet.Dr PO 40 mg BEDTIME LEE ANN Administration Quetiapine Fumarate 25 mg 10/05/21 15:00 10/07/21 15:48 Quetiapine Fumarate 25 Mg Tablet PO 25 mg TID LEE ANN Administration Trazodone HCl 50 mg 10/05/21 21:00 10/06/21 20:28 Trazodone Hcl 50 Mg Tablet PO 50 mg BEDTIME LEE ANN Administration Body Composition Height: 5 ft 4 in Weight: 118 lb Body Mass Index (BMI): 20.2 Vital Signs Temperature: 98.7 F Pulse Rate: 71 Respiratory Rate: 16 Blood Pressure: 118/64 O2 Sat by Pulse Oximetry: 96 Physical Examination Appearance: Reports Ill-appearing and No pain distress Ill-appearing: Mild Pain Distress: None Eyes: Reports PIPPA, EOMI and Conjunctiva clear ENT: Reports Ears normal and Nose normal Neck: Supple Respiratory: Reports Airway patent, Crackles and Rhonchi Cardiovascular: Reports RRR GI/: Reports Soft, Nontender and No masses Musculoskeletal: Reports Normal strength, ROM intact, No edema and No calf tenderness Skin: Reports Dry Neurological: Reports Sensation intact, Motor intact, Cranial nerves intact, Alert and Disoriented Psychiatric: Reports Affect appropriate, Mood appropriate and Anxious Lab/Tests/Diagnostic Imaging Lab/Tests/Diagnostic Imaging: Lab Review 10/05/21 10/05/21 10/05/21 10:40 10:40 10:55 WBC 47.61 H RBC 3.25 L Hgb 9.7 L Hct 29.6 L MCV 91.1 MCH 29.8 MCHC 32.8 RDW Coeff of Zena 17.9 H Plt Count 247 Neutrophils % (Manual) 82.0 H Band Neutrophils % 4.0 Lymphocytes % (Manual) 6.0 L Monocytes % (Manual) 6.0 Metamyelocytes % Myelocytes % 2.0 H Anisocytosis Not present Sodium Potassium Chloride Carbon Dioxide Anion Gap BUN Creatinine Estimated GFR (MDRD) BUN/Creatinine Ratio Glucose Lactic Acid Calcium Total Bilirubin AST ALT Alkaline Phosphatase C-Reactive Prot, Quant Total Protein Albumin Globulin Albumin/Globulin Ratio Procalcitonin Urine Color Urine Clarity Urine pH Ur Specific [place] Urine Protein Urine Glucose (UA) Urine Ketones Urine Blood Urine Nitrite Urine Bilirubin Urine Urobilinogen Ur Leukocyte Esterase Influ A Molecular Assay Negative by naat Influ B Molecular Assay Negative by naat RSV Antigen SARS CoV-2 RNA Rapid TADEO Negative 10/05/21 10/05/21 10/05/21 10:55 10:55 10:55 WBC RBC Hgb Hct MCV MCH MCHC RDW Coeff of Zena Plt Count Neutrophils % (Manual) Band Neutrophils % Lymphocytes % (Manual) Monocytes % (Manual) Metamyelocytes % Myelocytes % Anisocytosis Sodium 136.9 Potassium 3.80 Chloride 104.2 Carbon Dioxide 25.2 Anion Gap 11.30 BUN 11.0 Creatinine 0.92 Estimated GFR (MDRD) 58.00 BUN/Creatinine Ratio 11.95 Glucose 122.5 H Lactic Acid 1.93 Calcium 8.84 Total Bilirubin 0.63 AST 28.9 ALT 21.5 Alkaline Phosphatase 110.5 C-Reactive Prot, Quant 213 H Total Protein 6.97 Albumin 3.74 Globulin 3.23 Albumin/Globulin Ratio 1.15 Procalcitonin Urine Color Urine Clarity Urine pH Ur Specific [place] Urine Protein Urine Glucose (UA) Urine Ketones Urine Blood Urine Nitrite Urine Bilirubin Urine Urobilinogen Ur Leukocyte Esterase Influ A Molecular Assay Influ B Molecular Assay RSV Antigen SARS CoV-2 RNA Rapid TADEO 10/05/21 10/05/21 10/05/21 10:55 11:55 13:30 WBC RBC Hgb Hct MCV MCH MCHC RDW Coeff of Zena Plt Count Neutrophils % (Manual) Band Neutrophils % Lymphocytes % (Manual) Monocytes % (Manual) Metamyelocytes % Myelocytes % Anisocytosis Sodium Potassium Chloride Carbon Dioxide Anion Gap BUN Creatinine Estimated GFR (MDRD) BUN/Creatinine Ratio Glucose Lactic Acid Calcium Total Bilirubin AST ALT Alkaline Phosphatase C-Reactive Prot, Quant Total Protein Albumin Globulin Albumin/Globulin Ratio Procalcitonin 0.31 H Urine Color Yellow Urine Clarity Clear Urine pH 6.0 Ur Specific [place] <=1.005 Urine Protein Negative Urine Glucose (UA) Negative Urine Ketones Negative Urine Blood Negative Urine Nitrite Negative Urine Bilirubin Negative Urine Urobilinogen 1.0 H Ur Leukocyte Esterase Negative Influ A Molecular Assay Influ B Molecular Assay RSV Antigen Negative by naat SARS CoV-2 RNA Rapid TADEO 10/06/21 10/06/21 10/07/21 05:50 05:50 04:58 WBC 31.12 H D 24.93 H D RBC 2.94 L 2.78 L Hgb 8.7 L 8.2 L Hct 27.1 L 25.7 L MCV 92.2 92.4 MCH 29.6 29.5 MCHC 32.1 31.9 RDW Coeff of Zena 17.9 H 18.0 H Plt Count 237 241 Neutrophils % (Manual) 65.0 74.0 Band Neutrophils % 22.0 H 4.0 Lymphocytes % (Manual) 7.0 L 7.0 L Monocytes % (Manual) 1.0 4.0 Metamyelocytes % 2.0 4.0 H Myelocytes % 3.0 H 7.0 H Anisocytosis Not present Not present Sodium 138.8 Potassium 3.41 L Chloride 112.1 H Carbon Dioxide 22.0 Anion Gap 8.11 BUN 9.9 Creatinine 0.81 Estimated GFR (MDRD) 67.00 BUN/Creatinine Ratio 12.22 Glucose 104.4 Lactic Acid Calcium 8.07 L Total Bilirubin AST ALT Alkaline Phosphatase C-Reactive Prot, Quant Total Protein Albumin Globulin Albumin/Globulin Ratio Procalcitonin Urine Color Urine Clarity Urine pH Ur Specific [place] Urine Protein Urine Glucose (UA) Urine Ketones Urine Blood Urine Nitrite Urine Bilirubin Urine Urobilinogen Ur Leukocyte Esterase Influ A Molecular Assay Influ B Molecular Assay RSV Antigen SARS CoV-2 RNA Rapid TADEO 10/07/21 04:58 WBC RBC Hgb Hct MCV MCH MCHC RDW Coeff of Zena Plt Count Neutrophils % (Manual) Band Neutrophils % Lymphocytes % (Manual) Monocytes % (Manual) Metamyelocytes % Myelocytes % Anisocytosis Sodium 139.3 Potassium 3.09 L Chloride 111.6 H Carbon Dioxide 21.7 L Anion Gap 9.09 BUN 5.6 L Creatinine 0.71 Estimated GFR (MDRD) 78.00 BUN/Creatinine Ratio 7.88 Glucose 100.7 Lactic Acid Calcium 7.90 L Total Bilirubin AST ALT Alkaline Phosphatase C-Reactive Prot, Quant Total Protein Albumin Globulin Albumin/Globulin Ratio Procalcitonin Urine Color Urine Clarity Urine pH Ur Specific [place] Urine Protein Urine Glucose (UA) Urine Ketones Urine Blood Urine Nitrite Urine Bilirubin Urine Urobilinogen Ur Leukocyte Esterase Influ A Molecular Assay Influ B Molecular Assay RSV Antigen SARS CoV-2 RNA Rapid TADEO Orders Category Date Time Status ADMIT PATIENT INPATIENT .TO MEDSURG (NON-MONITORED ADMISSION 10/05/21 13:19 Active BED) EKG-(IP & OP ONLY) Routine CARDIO 10/06/21 06:00 Completed EKG-(IP & OP ONLY) Stat CARDIO 10/05/21 13:22 Completed NEBULIZER TREATMENT Routine CARDIO 10/05/21 13:25 Active ACTIVITY .Up With Assistance CARE 10/05/21 13:21 Completed INTAKE & OUTPUT Q8HR CARE 10/05/21 13:22 Completed REMINDER:Breath Sounds&Sputum Production BID CARE 10/05/21 13:22 Active VITAL SIGNS Q8HR CARE 10/05/21 13:22 Active GUEST TRAY DIETARY 10/05/21 Dinner Ordered REGULAR DIET DIETARY 10/05/21 Dinner Ordered BLOOD CULTURE (ED ONLY) Stat LAB 10/05/21 12:42 Results BMP [BASIC METABOLIC PANEL] DAILY@0600 LAB 10/08/21 06:00 Ordered BMP [BASIC METABOLIC PANEL] DAILY@0600 LAB 10/09/21 06:00 Ordered BMP [BASIC METABOLIC PANEL] Routine LAB 10/07/21 04:58 Completed BMP [BASIC METABOLIC PANEL] Stat LAB 10/06/21 05:50 Completed C-REACTIVE PROTEIN Stat LAB 10/05/21 10:55 Completed CBC W/ AUTO DIFF DAILY@0600 LAB 10/08/21 06:00 Ordered CBC W/ AUTO DIFF DAILY@0600 LAB 10/09/21 06:00 Ordered CBC W/ AUTO DIFF Routine LAB 10/07/21 04:58 Completed CBC W/ AUTO DIFF Stat LAB 10/05/21 10:55 Completed CBC W/ AUTO DIFF Stat LAB 10/06/21 05:50 Completed COMPREHENSIVE METABOLIC PANEL Stat LAB 10/05/21 10:55 Completed FLU A/B MOLECULAR Stat LAB 10/05/21 10:40 Completed LACTIC ACID Stat LAB 10/05/21 10:55 Completed MANUAL DIFFERENTIAL Routine LAB 10/07/21 04:58 Completed MANUAL DIFFERENTIAL Stat LAB 10/05/21 10:55 Completed MANUAL DIFFERENTIAL Stat LAB 10/06/21 05:50 Completed PROCALCITONIN Stat LAB 10/05/21 10:55 Completed RSV Stat LAB 10/05/21 13:30 Completed SARS COV-2 RNA RAPID TADEO Stat LAB 10/05/21 10:40 Completed URINALYSIS C & S IF INDICATED Stat LAB 10/05/21 11:55 Completed VANCOMYCIN,TROUGH Timed LAB 10/09/21 08:30 Ordered Albuterol Sulfate 0.083% Neb [Albuterol 0.083% Neb] MEDS 10/05/21 13:21 Active 2.5 mg NEB RTQ6H PRN Cefepime 2 gm/D5w [Maxipime 2 gm/50 ml D5w] MEDS 10/05/21 21:00 Active 2 gm in 50 ml IV Q12HR Divalproex Sodium [Depakote] MEDS 10/05/21 21:00 Discontinued 250 mg PO BID Enoxaparin Sodium [Lovenox] MEDS 10/07/21 09:00 Active 30 mg SUBCUT DAILY Levothyroxine Sodium [Synthroid] MEDS 10/06/21 06:30 Active 50 mcg PO QDAC Lorazepam [Ativan] MEDS 10/05/21 14:12 Discontinued 0.5 mg IVP ONCE ONE Lorazepam [Ativan] MEDS 10/07/21 17:10 Ordered 0.5 mg PO DAILY PRN Lorazepam [Ativan] MEDS 10/06/21 21:00 Active 1 mg PO BEDTIME Lorazepam [Ativan] 1 ml MEDS 10/05/21 14:14 Discontinued .ROUTE .STK-MED Melatonin MEDS 10/06/21 21:00 Active 20 mg PO BEDTIME Pantoprazole Sodium [Protonix] MEDS 10/05/21 21:00 Active 40 mg PO BEDTIME Piperacillin Sodium/Tazobactam [Zosyn 3.375 gm] 3.375 MEDS 10/05/21 13:04 Discontinued gm 0.9 % Sodium Chloride [Sodium Chloride] 50 ml IV ONCE Potassium Chloride/D5-0.9%NaCl [D5%-Ns-KCl 20 Meq/l IV MEDS 10/07/21 17:30 Active Aidee] 1,000 ml IV 42 mls/hr Quetiapine Fumarate [Seroquel] MEDS 10/05/21 15:00 Active 25 mg PO TID Sodium Chloride 0.9% [Sodium Chloride] 1,000 ml MEDS 10/05/21 10:37 Discontinued IV 250 mls/hr Sodium Chloride 0.9% [Sodium Chloride] 1,000 ml MEDS 10/05/21 13:30 Discontinued IV 75 mls/hr Trazodone HCl [Desyrel] MEDS 10/05/21 21:00 Active 50 mg PO BEDTIME Vancomycin 1 gm MEDS 10/06/21 09:00 Active 0.9 % Sodium Chloride [Sodium Chloride] 250 ml IV DAILY Vancomycin 1 gm MEDS 10/05/21 13:27 Discontinued 0.9 % Sodium Chloride [Sodium Chloride] 250 ml IV ONCE melatonin MEDS 10/05/21 21:00 Discontinued 20 mg PO BEDTIME melatonin MEDS 10/05/21 21:00 Discontinued 3 mg PO BEDTIME RESUSCITATION STATUS Routine OTHERS 10/05/21 15:27 Ordered CHEST, 1V AP ONLY Stat RADS 10/05/21 10:[address] ABDOMEN/PELVIS WO CONTRAST Stat RADS 10/05/21 14:02 Completed Medications Generic Name Dose Route Start Last Admin Trade Name Freq PRN Reason Stop Dose Admin Albuterol Sulfate 2.5 mg 10/05/21 13:21 Albuterol Sulfate 0.083% Vial.Neb NEB RTQ6H PRN Wheezing Enoxaparin Sodium 30 mg 10/07/21 09:00 10/07/21 08:35 Enoxaparin Sodium 30 Mg/0.3 Ml Syr SUBCUT 30 mg DAILY LEE ANN Administration Vancomycin HCl 1 gm/ Sodium 250 mls @ 250 mls/hr 10/06/21 09:00 10/07/21 10:27 Chloride IV 10/09/21 08:59 250 mls/hr DAILY LEE ANN Administration CEFEPIME 2 GM/D5W 2 gm in 50 mls @ 100 mls/hr 10/05/21 21:00 10/07/21 08:31 Maxipime 2 Gm/50 Ml D5w IV 10/08/21 20:59 100 mls/hr Q12HR LEE ANN Administration Potassium Chloride/Dextrose/Sod Cl 1,000 mls @ 42 mls/hr 10/07/21 17:30 D5%-Ns-Kcl 20 Meq/L Iv Aidee IV .[id number] LEE ANN Levothyroxine Sodium 50 mcg 10/06/21 06:30 10/07/21 05:43 Levothyroxine Sodium 50 Mcg Tablet PO 50 mcg QDAC LEE ANN Administration Lorazepam 1 mg 10/06/21 21:00 10/06/21 20:29 Lorazepam 1 Mg Tablet PO 1 mg BEDTIME LEE ANN Administration Lorazepam 0.5 mg 10/07/21 17:10 Lorazepam 0.5 Mg Tablet PO DAILY PRN Anxiety Non-Formulary Medication 20 mg 10/06/21 21:00 10/06/21 20:15 Melatonin PO 20 mg BEDTIME LEE ANN Administration Pantoprazole Sodium 40 mg 10/05/21 21:00 10/06/21 20:27 Pantoprazole Sodium 40 Mg Tablet. PO 40 mg BEDTIME LEE ANN Administration Quetiapine Fumarate 25 mg 10/05/21 15:00 10/07/21 15:48 Quetiapine Fumarate 25 Mg Tablet PO 25 mg TID LEE ANN Administration Trazodone HCl 50 mg 10/05/21 21:00 10/06/21 20:28 Trazodone Hcl 50 Mg Tablet PO 50 mg BEDTIME LEE ANN Administration Discontinued Medications Generic Name Dose Route Start Last Admin Trade Name Freq PRN Reason Stop Dose Admin Divalproex Sodium 250 mg 10/05/21 21:00 10/07/21 08:30 Divalproex Sodium 250 Mg Tablet. PO 250 mg BID LEE ANN Administration Sodium Chloride 1,000 mls @ 250 mls/hr 10/05/21 10:37 10/05/21 11:09 Sodium Chloride IV 10/05/21 14:36 250 mls/hr .Q4H STA Administration Piperacillin Sod/Tazobactam 50 mls @ 50 mls/hr 10/05/21 13:04 10/05/21 13:10 Sod 3.375 gm/ Sodium Chloride IV 10/05/21 14:03 50 mls/hr ONCE ONE Administration Sodium Chloride 1,000 mls @ 75 mls/hr 10/05/21 13:30 10/07/21 04:26 Sodium Chloride IV 75 mls/hr .[id number] LEE ANN Administration Vancomycin HCl 1 gm/ Sodium 250 mls @ 250 mls/hr 10/05/21 13:27 10/05/21 15:32 Chloride IV 10/05/21 14:26 250 mls/hr ONCE ONE Administration Lorazepam 0.5 mg 10/05/21 14:12 10/05/21 14:19 Lorazepam Inj 2 Mg/Ml Vial IVP 10/05/21 14:13 0.5 mg ONCE ONE Administration Non-Formulary Medication 3 mg 10/05/21 21:00 Melatonin PO BEDTIME LEE ANN Non-Formulary Medication 20 mg 10/05/21 21:00 10/06/21 12:03 Melatonin PO Not Given BEDTIME LEE ANN Assessment (1) Altered mental state: Status: Acute Code(s): R41.82 - Altered mental status, unspecified SNOMED Code(s): 784205695 Qualifiers: Altered mental status type: disorientation Qualified Code(s): R41.0 - Disorientation, unspecified (2) Pneumonia: Status: Acute Code(s): J18.9 - Pneumonia, unspecified organism SNOMED Code(s): 731860770 Qualifiers: Laterality: left Lung location: lower lobe of lung Pneumonia type: due to unspecified organism Qualified Code(s): J18.9 - Pneumonia, unspecified organism (3) Leukocytosis, unspecified: Status: Acute Code(s): D72.829 - Elevated white blood cell count, unspecified SNOMED Code(s): 430998711 Qualifiers: Leukocytosis type: unspecified Qualified Code(s): D72.829 - Elevated white blood cell count, unspecified Plan Plan: iv antbx, monitor wbc, dvt prophylaxis, home meds---poa has made her status dnr and despite the leukocytosis does not want to transfer her.
--- NOTE | 2021-10-07 17:19 | PCM.PROG ---
Date Seen by Provider: 10/06/21 Time Seen by Provider: 17:30 Subjective: ;cassy says she is doing better---poor appetite Objective: Vitals: T=98.7 F, P=71, R=16, OB=589/64, SPO2=96 HEENT: [perrla] Neck: [supple] Lungs: rhonchi scattered and rales CVS: [rrr] Abdomen: [soft nt bs] Extremities: [no defomity] Neurological: [confused(baseline)] Skin: [] Lab/Tests/Diagnostic Imaging: [reviewed] (1) Altered mental state: Status: Acute Code(s): R41.82 - Altered mental status, unspecified SNOMED Code(s): 400403507 (2) Pneumonia: Status: Acute Code(s): J18.9 - Pneumonia, unspecified organism SNOMED Code(s): 053783875 (3) Leukocytosis, unspecified: Status: Acute Code(s): D72.829 - Elevated white blood cell count, unspecified SNOMED Code(s): 498370103 Assessment: her white count is improved Plan: continue atbx--monitor labs---see orders
--- NOTE | 2021-10-07 17:22 | PCM.PROG ---
Date Seen by Provider: 10/07/21 Time Seen by Provider: 17:19 Subjective: poor appetite--remains confused at times..no new nursing staff concerns Objective: Vitals: T=98.7 F, P=71, R=16, MK=901/64, SPO2=96 HEENT: [perrla] Neck: [supple] Lungs: [scattered rhonchi] CVS: [rrr] Abdomen: [soft nt] Extremities: [no deformity] Neurological: [intact] Skin: [] Lab/Tests/Diagnostic Imaging: [freviews] (1) Altered mental state: Status: Acute Code(s): R41.82 - Altered mental status, unspecified SNOMED Code(s): 530729776 (2) Pneumonia: Status: Acute Code(s): J18.9 - Pneumonia, unspecified organism SNOMED Code(s): 235384860 (3) Leukocytosis, unspecified: Status: Acute Code(s): D72.829 - Elevated white blood cell count, unspecified SNOMED Code(s): 065580570 Assessment: noted potassium of 3--wbc down to 24k Plan: continue atbx, replete potassium, monitor labs
[2021-10-07] MEDS ORDERED: D5%-NS-KCL 20 MEQ/L IV SOL 1,000 ML IV SCH (17:30)
[2021-10-07] MEDS: DESYREL PO SCH (20:41)
[2021-10-07] MEDS: PROTONIX PO SCH (20:41)
[2021-10-07] MEDS: ATIVAN PO SCH (20:41)
[2021-10-07] MEDS: NON-FORMULARY MEDICATION (Melatonin 20 MG) PO SCH (20:42)
[2021-10-08 05:14] LABS: HEMATOCRIT 26.8 % (37.0-47.0); HEMOGLOBIN 8.8 g/dl (12.0-16.0); MEAN CORPUSCULAR HEMOGLOBIN 29.6 pg (27.0-31.0); MEAN CORPUSCULAR HGB CONC 32.8 (31.8-35.4); MEAN CORPUSCULAR VOLUME 90.2 fl (81.0-99.0); PLATELET COUNT 272 10^3/uL (140-440); RDW COEFFICIENT OF VARIATION 18.1 % (11.6-14.8); RED BLOOD COUNT 2.97 10^6/ul (4.20-5.40); WHITE BLOOD COUNT 22.41 K/ul (4.6-10.2)
[2021-10-08 05:28] LABS: BLOOD UREA NITROGEN 3.2 mg/dL (7-17); CALCIUM 8.09 mg/dL (8.4-10.2); CARBON DIOXIDE 19.2 mmol/L (22-30.0); CHLORIDE 111.8 mmol/L (98-107); CREATININE 0.57 mg/dL (0.60-1.30); GLUCOSE 114.4 mg/dL (74-106); POTASSIUM 3.12 mmol/L (3.5-5.1); SODIUM 139.1 mmol/L (134.5-145)
[2021-10-08] MEDS ORDERED: VISTARIL INJ IM SCH (05:30)
--- NOTE | 2021-10-08 05:48 | PCM.PROG ---
Date Seen by Provider: 10/08/21 Time Seen by Provider: 05:47 Subjective: sitter says not sleeping --no nursing staff concenrs Objective: Vitals: T=98.7 F, P=71, R=16, PM=659/64, SPO2=96 HEENT: [] Neck: [supple] Lungs: [rhonchi] CVS: [] Abdomen: [soft nt] Extremities: [] Neurological: [] Skin: [] Lab/Tests/Diagnostic Imaging: [] (1) Altered mental state: Status: Acute Code(s): R41.82 - Altered mental status, unspecified SNOMED Code(s): 924579065 (2) Pneumonia: Status: Acute Code(s): J18.9 - Pneumonia, unspecified organism SNOMED Code(s): 896733655 (3) Leukocytosis, unspecified: Status: Acute Code(s): D72.829 - Elevated white blood cell count, unspecified SNOMED Code(s): 182674998 Plan: await am labs--continuing anbx for now
[2021-10-08 06:28] LABS: ANISOCYTOSIS NOT PRESENT (NOT PRESENT)
[2021-10-08] MEDS: SYNTHROID PO SCH (06:30)
[2021-10-08] MEDS: LOVENOX SUBCUT SCH (08:09)
[2021-10-08] MEDS: MAXIPIME 2 GM/50 ML D5W 2 GM/50 ML BAG IV SCH ×2 (08:09→21:06)
[2021-10-08] MEDS: VANCOMYCIN 1 GM in SODIUM CHLORIDE 250 ML IV SCH (09:11)
[2021-10-08] MEDS: SEROQUEL PO SCH ×4 (09:11→23:05)
[2021-10-08] MEDS: VISTARIL INJ IM PRN ×2 (10:14→21:04)
[2021-10-08] MEDS ORDERED: POTASSIUM CHLORIDE IV SCH ×3 (16:30)
[2021-10-08] MEDS ORDERED: [UNRECOGNIZED DRUG - OTHER] IV SCH ×3 (16:30)
[2021-10-08] MEDS ORDERED: POTASSIUM CHLORIDE 10 MEQ VIAL- ADDITIVE ONLY IV ONE (17:24)
[2021-10-08] MEDS: [UNRECOGNIZED DRUG - MIXTURE] IV SCH (17:32)
[2021-10-08] MEDS: ATIVAN PO SCH ×2 (21:05→21:30)
[2021-10-08] MEDS: DESYREL PO SCH ×2 (21:06→21:30)
[2021-10-08] MEDS: PROTONIX PO SCH ×2 (21:06→23:05)
[2021-10-08] MEDS: NON-FORMULARY MEDICATION (Melatonin 20 MG) PO SCH ×2 (21:07→23:05)
[2021-10-09] MEDS ORDERED: GEODON IM PRN ×2 (04:59→16:53)
[2021-10-09] MEDS: SYNTHROID PO SCH (05:38)
[2021-10-09] MEDS ORDERED: GEODON IM ONE (07:50)
[2021-10-09] MEDS: SEROQUEL PO SCH ×3 (08:12→20:50)
[2021-10-09] MEDS: MAXIPIME 2 GM/50 ML D5W 2 GM/50 ML BAG IV SCH (08:14)
[2021-10-09] MEDS: LOVENOX SUBCUT SCH (08:16)
[2021-10-09 08:48] LABS: HEMATOCRIT 28.9 % (37.0-47.0); HEMOGLOBIN 9.4 g/dl (12.0-16.0); MEAN CORPUSCULAR HEMOGLOBIN 29.6 pg (27.0-31.0); MEAN CORPUSCULAR HGB CONC 32.5 (31.8-35.4); MEAN CORPUSCULAR VOLUME 90.9 fl (81.0-99.0); PLATELET COUNT 314 10^3/uL (140-440); RED BLOOD COUNT 3.18 10^6/ul (4.20-5.40); WHITE BLOOD COUNT 22.79 K/ul (4.6-10.2)
[2021-10-09 08:52] LABS: CALCIUM 8.81 mg/dL (8.4-10.2); CARBON DIOXIDE 24.3 mmol/L (22-30.0); CHLORIDE 111.9 mmol/L (98-107); CREATININE 0.57 mg/dL (0.60-1.30); GLUCOSE 120.5 mg/dL (74-106); POTASSIUM 2.95 mmol/L (3.5-5.1); SODIUM 143.8 mmol/L (134.5-145)
[2021-10-09 09:02] LABS: ANISOCYTOSIS NOT PRESENT (NOT PRESENT)
[2021-10-09 09:03] LABS: BURR CELLS 1+ (NOT PRESENT)
[2021-10-09] MEDS: VISTARIL INJ IM PRN (11:10)
[2021-10-09] MEDS ORDERED: POTASSIUM CHLORIDE 10 MEQ VIAL- ADDITIVE ONLY IV ONE (16:33)
[2021-10-09] MEDS ORDERED: POTASSIUM CHL 10% ORAL SOL PO ONE (16:49)
--- NOTE | 2021-10-09 16:50 | PCM.PROG ---
Date Seen by Provider: 10/09/21 Time Seen by Provider: 16:48 Subjective: still confused--didnt sleep last night=---received juan tena this am Objective: Vitals: T=97.4 F, P=58, R=16, DJ=440/52, SPO2=97 HEENT: [] Neck: [supple] Lungs: scatter rhonchi[] CVS: [rrr] Abdomen: [] Extremities: [] Neurological: [] Skin: [] Lab/Tests/Diagnostic Imaging: []noted low K (1) Altered mental state: Status: Acute Code(s): R41.82 - Altered mental status, unspecified SNOMED Code(s): 236723429 (2) Pneumonia: Status: Acute Code(s): J18.9 - Pneumonia, unspecified organism SNOMED Code(s): 785825625 (3) Leukocytosis, unspecified: Status: Acute Code(s): D72.829 - Elevated white blood cell count, unspecified SNOMED Code(s): 227250659 Plan: vu antmelanix---follow white count---check cxr in am
[2021-10-09] MEDS: [UNRECOGNIZED DRUG - MIXTURE] IV SCH (17:00)
[2021-10-09] MEDS: ATIVAN PO SCH (20:39)
[2021-10-09] MEDS: PROTONIX PO SCH (20:50)
[2021-10-09] MEDS: DESYREL PO SCH (20:50)
[2021-10-09] MEDS: NON-FORMULARY MEDICATION (Melatonin 20 MG) PO SCH (20:51)
[2021-10-10 05:22] LABS: HEMATOCRIT 28.4 % (37.0-47.0); HEMOGLOBIN 9.1 g/dl (12.0-16.0); MEAN CORPUSCULAR HEMOGLOBIN 29.4 pg (27.0-31.0); MEAN CORPUSCULAR VOLUME 91.9 fl (81.0-99.0); PLATELET COUNT 291 10^3/uL (140-440); RDW COEFFICIENT OF VARIATION 18.4 % (11.6-14.8); RED BLOOD COUNT 3.09 10^6/ul (4.20-5.40); WHITE BLOOD COUNT 18.56 K/ul (4.6-10.2)
[2021-10-10 05:39] LABS: ANISOCYTOSIS NOT PRESENT (NOT PRESENT)
[2021-10-10 05:44] LABS: BLOOD UREA NITROGEN 2.3 mg/dL (7-17); CALCIUM 8.5 mg/dL (8.4-10.2); CARBON DIOXIDE 25.3 mmol/L (22-30.0); CHLORIDE 111.6 mmol/L (98-107); CREATININE 0.6 mg/dL (0.60-1.30); GLUCOSE 116.2 mg/dL (74-106); POTASSIUM 2.92 mmol/L (3.5-5.1); SODIUM 142.3 mmol/L (134.5-145)
[2021-10-10] MEDS: SYNTHROID PO SCH (05:53)
[2021-10-10] MEDS: SEROQUEL PO SCH ×4 (09:33→20:43)
[2021-10-10] MEDS: LOVENOX SUBCUT SCH (09:33)
[2021-10-10] MEDS: POTASSIUM CHL 10% ORAL SOL PO SCH ×3 (09:34→20:42)
[2021-10-10] MEDS: VISTARIL INJ IM PRN ×2 (09:44→21:12)
--- NOTE | 2021-10-10 09:50 | DI ---
EXAM: Chest, one view HISTORY: Follow up pneumonia COMPARISON: 09/25/2021 TECHNIQUE: Single view chest was performed. FINDINGS: Heart and mediastinal contour unchanged. Left greater than right bibasilar consolidation, mildly increased. Possible small left pleural effusion. No visible pneumothorax. IMPERSSION: Left greater than right basilar consolidation, likely represents pneumonia, mildly increased. Possibl e small left pleural effusion.
[2021-10-10] MEDS: VANCOMYCIN 750 MG in SODIUM CHLORIDE 250 ML IV SCH ×2 (11:15→22:08)
[2021-10-10] MEDS: MAXIPIME 2 GM/50 ML D5W 2 GM/50 ML BAG IV SCH ×2 (13:52→20:44)
[2021-10-10] MEDS: PROTONIX PO SCH (20:43)
[2021-10-10] MEDS: DESYREL PO SCH (20:43)
[2021-10-10] MEDS: ATIVAN PO SCH (20:43)
[2021-10-10] MEDS ORDERED: POTASSIUM CHLORIDE 10 MEQ VIAL- ADDITIVE ONLY IV ONE (22:11)
[2021-10-10] MEDS: [UNRECOGNIZED DRUG - MIXTURE] IV SCH (22:13)
[2021-10-10] MEDS: NON-FORMULARY MEDICATION (Melatonin 20 MG) PO SCH (22:38)
[2021-10-11 05:37] LABS: BLOOD UREA NITROGEN 4.5 mg/dL (7-17); CALCIUM 8.61 mg/dL (8.4-10.2); CARBON DIOXIDE 23.9 mmol/L (22-30.0); CHLORIDE 114.8 mmol/L (98-107); CREATININE 0.71 mg/dL (0.60-1.30); GLUCOSE 102.3 mg/dL (74-106); POTASSIUM 3.83 mmol/L (3.5-5.1); SODIUM 141.9 mmol/L (134.5-145)
[2021-10-11] MEDS: SYNTHROID PO SCH (05:41)
[2021-10-11] MEDS: VISTARIL INJ IM PRN (07:30)
[2021-10-11] MEDS: LOVENOX SUBCUT SCH (09:15)
[2021-10-11] MEDS: MAXIPIME 2 GM/50 ML D5W 2 GM/50 ML BAG IV SCH ×2 (09:15→20:34)
[2021-10-11] MEDS: VANCOMYCIN 750 MG in SODIUM CHLORIDE 250 ML IV SCH ×2 (10:53→22:26)
[2021-10-11] MEDS: SEROQUEL PO SCH ×3 (11:20→20:32)
[2021-10-11] MEDS ORDERED: GEODON IM ONE ×2 (19:04→21:00)
[2021-10-11 19:18] LABS: HEMATOCRIT 29.7 % (37.0-47.0); HEMOGLOBIN 8.8 g/dl (12.0-16.0); MEAN CORPUSCULAR HEMOGLOBIN 29.3 pg (27.0-31.0); MEAN CORPUSCULAR HGB CONC 29.6 (31.8-35.4); PLATELET COUNT 296 10^3/uL (140-440); RDW COEFFICIENT OF VARIATION 19.7 % (11.6-14.8); WHITE BLOOD COUNT 19.82 K/ul (4.6-10.2)
[2021-10-11 19:33] LABS: ANISOCYTOSIS NOT PRESENT (NOT PRESENT)
[2021-10-11] MEDS: COLACE PO SCH (20:32)
[2021-10-11] MEDS: DESYREL PO SCH (20:32)
[2021-10-11] MEDS: NON-FORMULARY MEDICATION (Melatonin 20 MG) PO SCH (20:35)
[2021-10-11] MEDS: PROTONIX PO SCH (20:36)
[2021-10-12 05:14] LABS: BASOPHILS # (AUTO) 0.3 K/uL (0-0.2); BASOPHILS % (AUTO) 1.4 % (0.0-3.0); EOSINOPHILS % (AUTO) 0.2 % (0.0-7.0); HEMATOCRIT 28.9 % (37.0-47.0); HEMOGLOBIN 9.3 g/dl (12.0-16.0); IMMATURE GRANULOCYTE # (AUTO) 2.5 (0.0-1.0); IMMATURE GRANULOCYTE % (AUTO) 12.4 % (0.0-5.0); LYMPHOCYTES # (AUTO) 2.1 K/uL (0.60-3.4); LYMPHOCYTES % (AUTO) 10.6 (10.0-50.0); MEAN CORPUSCULAR HEMOGLOBIN 29.6 pg (27.0-31.0); MEAN CORPUSCULAR HGB CONC 32.2 (31.8-35.4); MONOCYTES # (AUTO) 1.4 K/uL (0.4-2.0); MONOCYTES % (AUTO) 7.2 (0-10); NEUTROPHILS # (AUTO) 13.6 K/ul (2.0-6.9); NEUTROPHILS % (AUTO) 68.2 % (42.2-75.2); PLATELET COUNT 299 10^3/uL (140-440); RDW COEFFICIENT OF VARIATION 18.6 % (11.6-14.8); RED BLOOD COUNT 3.14 10^6/ul (4.20-5.40); WHITE BLOOD COUNT 19.91 K/ul (4.6-10.2)
[2021-10-12 05:44] LABS: BLOOD UREA NITROGEN 6.1 mg/dL (7-17); CALCIUM 9.59 mg/dL (8.4-10.2); CARBON DIOXIDE 23.5 mmol/L (22-30.0); CHLORIDE 112.8 mmol/L (98-107); CREATININE 0.86 mg/dL (0.60-1.30); GLUCOSE 105.1 mg/dL (74-106); POTASSIUM 3.72 mmol/L (3.5-5.1); SODIUM 141.7 mmol/L (134.5-145)
[2021-10-12] MEDS: SYNTHROID PO SCH (05:59)
[2021-10-12] MEDS: VISTARIL INJ IM PRN ×2 (05:59→18:11)
[2021-10-12] MEDS: MIRALAX PO SCH (09:56)
[2021-10-12] MEDS: COLACE PO SCH ×2 (09:56→20:35)
[2021-10-12] MEDS: SEROQUEL PO SCH ×3 (09:57→20:35)
[2021-10-12] MEDS: MAXIPIME 2 GM/50 ML D5W 2 GM/50 ML BAG IV SCH ×2 (10:04→20:33)
[2021-10-12] MEDS: LOVENOX SUBCUT SCH (10:11)
[2021-10-12] MEDS: VANCOMYCIN 1 GM in SODIUM CHLORIDE 250 ML IV SCH (11:16)
[2021-10-12] MEDS ORDERED: DECADRON IVP ONE (12:56)
[2021-10-12] MEDS ORDERED: BENADRYL IVP ONE (12:56)
[2021-10-12] MEDS: [UNRECOGNIZED DRUG - MIXTURE] IV SCH (14:08)
[2021-10-12] MEDS: VANCOMYCIN 750 MG in SODIUM CHLORIDE 250 ML IV SCH (14:08)
[2021-10-12] MEDS: NON-FORMULARY MEDICATION (Melatonin 20 MG) PO SCH (20:33)
[2021-10-12] MEDS: DESYREL PO SCH (20:34)
[2021-10-12] MEDS: PROTONIX PO SCH (20:35)
[2021-10-13] MEDS: SYNTHROID PO SCH (05:48)
[2021-10-13] MEDS: VISTARIL INJ IM PRN ×2 (05:54→14:12)
[2021-10-13] MEDS: SEROQUEL PO SCH ×3 (10:16→20:59)
[2021-10-13] MEDS: LOVENOX SUBCUT SCH (10:16)
[2021-10-13] MEDS: MIRALAX PO SCH (10:16)
[2021-10-13] MEDS: MAXIPIME 2 GM/50 ML D5W 2 GM/50 ML BAG IV SCH ×2 (10:17→21:09)
[2021-10-13] MEDS: VANCOMYCIN 1 GM in SODIUM CHLORIDE 250 ML IV SCH (11:25)
--- NOTE | 2021-10-13 11:33 | DI ---
EXAM: Frontal view of the chest. HISTORY: Pneumonia follow up. COMPARISON: Chest radiograph 10/10/2021. FINDINGS: Calcific atherosclerosis. Normal heart size. Stable ground-glass opacities at the left lung base. No visible effusion or pneumothorax. No acute osseous abnormality. IMPRESSION: 1. Stable left basilar opacities/pneumonia.
[2021-10-13] MEDS ORDERED: GEODON IM STA (14:13)
[2021-10-13] MEDS ORDERED: GEODON IM ONE (14:19)
--- NOTE | 2021-10-13 15:36 | PCM.PROG ---
Date Seen by Provider: 10/10/21 Time Seen by Provider: 17:35 Subjective: no new complaints voice by nursing staff---spoke to poa to update her on findings Objective: Vitals: T=97.2 F, P=81, R=16, XT=998/80, SPO2=98 HEENT: [] Neck: [supple] Lungs: scattered rhonchi] CVS: [rrr] Abdomen: [soft nt bs] Extremities: [] Neurological: [intact] Skin: [] Lab/Tests/Diagnostic Imaging: [] (1) Altered mental state: Status: Acute Code(s): R41.82 - Altered mental status, unspecified SNOMED Code(s): 284486498 (2) Pneumonia: Status: Acute Code(s): J18.9 - Pneumonia, unspecified organism SNOMED Code(s): 325415163 (3) Leukocytosis, unspecified: Status: Acute Code(s): D72.829 - Elevated white blood cell count, unspecified SNOMED Code(s): 954780229 Plan: continuing antbx, replete potassium--see orders
--- NOTE | 2021-10-13 15:38 | PCM.PROG ---
Date Seen by Provider: 10/11/21 Time Seen by Provider: 17:15 Subjective: no new nursing staff concerns---eating very little Objective: Vitals: T=97.2 F, P=81, R=16, MX=466/80, SPO2=98 HEENT: [] Neck: [supple] Lungs: scattered rhonchi[] CVS: [rrr] Abdomen: [] Extremities: [] Neurological: [] Skin: [] Lab/Tests/Diagnostic Imaging: [] (1) Altered mental state: Status: Acute Code(s): R41.82 - Altered mental status, unspecified SNOMED Code(s): 157512645 (2) Pneumonia: Status: Acute Code(s): J18.9 - Pneumonia, unspecified organism SNOMED Code(s): 147723180 (3) Leukocytosis, unspecified: Status: Acute Code(s): D72.829 - Elevated white blood cell count, unspecified SNOMED Code(s): 048151980 Plan: monitor electrolytes and leukocytosis, continue antbx, repeat cxr
--- NOTE | 2021-10-13 15:40 | PCM.PROG ---
Date Seen by Provider: 10/12/21 Time Seen by Provider: 17:15 Subjective: no new concers from nursing staff--- Objective: Vitals: T=97.2 F, P=81, R=16, SA=522/80, SPO2=98 HEENT: [] Neck: [supple] Lungs: [scattered rhonchi] CVS: [rrr] Abdomen: [soft nt bs] Extremities: [] Neurological: [] Skin: [] Lab/Tests/Diagnostic Imaging: [] (1) Altered mental state: Status: Acute Code(s): R41.82 - Altered mental status, unspecified SNOMED Code(s): 299036383 (2) Pneumonia: Status: Acute Code(s): J18.9 - Pneumonia, unspecified organism SNOMED Code(s): 157605895 (3) Leukocytosis, unspecified: Status: Acute Code(s): D72.829 - Elevated white blood cell count, unspecified SNOMED Code(s): 831926453 Plan: continue antbx, repeat cxr in am
[2021-10-13] MEDS: PROTONIX PO SCH (20:59)
[2021-10-13] MEDS: COLACE PO SCH ×2 (20:59→23:00)
[2021-10-13] MEDS: DESYREL PO SCH (21:00)
[2021-10-13] MEDS: NON-FORMULARY MEDICATION (Melatonin 20 MG) PO SCH (21:07)
[2021-10-14] MEDS: VISTARIL INJ IM PRN ×2 (05:21→12:22)
[2021-10-14] MEDS: SYNTHROID PO SCH (05:33)
--- NOTE | 2021-10-14 06:23 | PCM.PROG ---
Date Seen by Provider: 10/13/21 Time Seen by Provider: 14:39 Subjective: no new complAints---had cxr this am--no nursing staff concerns Objective: Vitals: T=97.3 F, P=70, R=16, XG=726/62, SPO2=97 HEENT: [] Neck: [supple] Lungs: [scattered rhonchi] CVS: [rrr] Abdomen: [soft nt] Extremities: [] Neurological: [] Skin: [] Lab/Tests/Diagnostic Imaging: [] (1) Altered mental state: Status: Acute Code(s): R41.82 - Altered mental status, unspecified SNOMED Code(s): 218791793 (2) Pneumonia: Status: Acute Code(s): J18.9 - Pneumonia, unspecified organism SNOMED Code(s): 406344313 (3) Leukocytosis, unspecified: Status: Acute Code(s): D72.829 - Elevated white blood cell count, unspecified SNOMED Code(s): 249063689 Assessment: cxr is reviewed---radiologist says no change but actually i feel it looks a little better and she is doing better clinically Plan: will discuss with poa discharge tomorrow to assisted living
--- NOTE | 2021-10-14 06:27 | PCM.DC ---
Final Diagnosis: pneumonia, community acquired (1) Altered mental state: Status: Acute Code(s): R41.82 - Altered mental status, unspecified SNOMED Code(s): 045448455 Qualifiers: Altered mental status type: disorientation Qualified Code(s): R41.0 - Disorientation, unspecified (2) Pneumonia: Status: Acute Code(s): J18.9 - Pneumonia, unspecified organism SNOMED Code(s): 325532138 Qualifiers: Laterality: left Lung location: lower lobe of lung Pneumonia type: due to unspecified organism Qualified Code(s): J18.9 - Pneumonia, unspecified organism (3) Leukocytosis, unspecified: Status: Acute Code(s): D72.829 - Elevated white blood cell count, unspecified SNOMED Code(s): 237156900 Qualifiers: Leukocytosis type: unspecified Qualified Code(s): D72.829 - Elevated white blood cell count, unspecified Reason for Hospitalization: the patient was admitted via the ed due to profound weakness, poor appetite and profound leukocytosis Prognosis/Condition at Discharge: guarded Medications at Discharge: Ambulatory Orders Medication Instructions Recorded levothyroxine 50 mcg tablet 50 mcg PO QDAC 03/03/18 (Synthroid) quetiapine 25 mg tablet (Seroquel) 25 mg PO TID tablet 04/22/18 ergocalciferol (vitamin D2) 1,250 50,000 unit PO WEEKLY 08/25/19 mcg (50,000 unit) capsule melatonin 3 mg tablet 20 mg PO BEDTIME 08/25/19 trazodone 50 mg tablet 50 mg PO BEDTIME 08/25/19 pantoprazole 40 mg tablet,delayed 40 mg PO BEDTIME 10/05/21 release (Protonix) Lab/Diagnostics: improvement in potassium and leukocytosis noteda Follow-ups: 2 weeks in the office Discharge Disposition: Assisted Living Facility Hospital Course: she did well--her leukocytosis improved and her potassium improved. her follow up cxr did not reveal any worsening and clinicallty she improved with good oximetry and improved oral intake. Plan: back to assisted living with omnicef and doxycycline, repeat cbc in my office in 2 weeks
[2021-10-14] MEDS: LOVENOX SUBCUT SCH (09:44)
[2021-10-14] MEDS: MAXIPIME 2 GM/50 ML D5W 2 GM/50 ML BAG IV SCH (09:44)
[2021-10-14] MEDS: SEROQUEL PO SCH (09:44)
[2021-10-14] MEDS: MIRALAX PO SCH (09:47)
[2021-10-14] MEDS: VANCOMYCIN 1 GM in SODIUM CHLORIDE 250 ML IV SCH (10:35)
[2021-10-14 14:04] VITALS: BP 136/82; TEMP 97.7
== END 2021-10-14 14:10 | disposition home or self-care (01) | DRG 947 ==
LOC: ED 10:02 → MEDSURG A 13:27 → UNDODISIN 10-14 06:30
PROVIDERS: ADMIT Family Medicine; ATTEND Family Medicine
DX: R53.1 Weakness; R41.0 Disorientation, unspecified; J18.9 Pneumonia, unspecified organism; Z20.822 Contact with and (suspected) exposure to COVID-19; D72.829 Elevated white blood cell count, unspecified

== ENCOUNTER 2021-10-24 14:26 | Inpatient (IN) ==
[2021-10-24] MEDS ORDERED: GEODON IM ONE ×2 (14:45→17:32)
[2021-10-24] MEDS ORDERED: URO-JET MUCOUSMEMB STA (14:45)
--- NOTE | 2021-10-24 14:55 | ED.PDOC ---
General ED Provider: Dr. JEANNINE ARAYA Chief Complaint: Fever Stated Complaint: Discharged from the hospital on the Oct where she had been admitted for pneumonia now started having mental status changes with severe agitated delirium. Previously controlled with Seroquel. Has been agitated resisting care and noted to have a fever. Exposed to other resident with COVID- 19. She has a history of dementia. Time Seen by Provider: 10/24/21 14:45 Mode of Arrival: Ambulance Information Source: Patient Primary Care Provider: ITALIA CARRERA Nursing and Triage Documentation Reviewed and Agree: Yes Does patient meet sepsis criteria?: No System Inflammatory Response Syndrome: Not Applicable Sepsis Protocol: For patient's 13 years and over: Temp is 96.8 and below OR 101 and greater Pulse >90 BPM Resp >20/minute Acutely Altered Mental Status Are patient's symptoms suggestive of a new infection, such as: -Pneumonia -Skin, Soft Tissue -Endocarditis -UTI -Bone, Joint Infection -Implantable Device -Acute Abdominal Infection -Wound Infection -Meningitis -Blood Stream Catheter Infection -Unknown Review of Systems Review Of Systems Constitutional: Reports No symptoms Respiratory: Denies Cough GI: Reports Constipated : Reports No symptoms Musculoskeletal: Reports No symptoms Skin: Reports No symptoms Neurological: Reports Anxiety, Emotional problems and Other (aggressive behaviours ) Endocrine: Reports No symptoms All Other Systems: Other (Limited due to Delirium ) PFSH Medical History (Updated 10/24/21 @ 20:25 by JEANNINE ARAYA MD) Dementia Depression GERD (gastroesophageal reflux disease) Hypothyroidism Social History Smoking and tobacco status: Never smoker Surgical History History of hysterectomy Female Reproductive History Menstrual Hx Hysterectomy: Yes Hx Tubal Ligation: No Physical Exam Physical Exam Appearance: Reports Ill-appearing and Thin Ill-appearing: Mild Pain Distress: None Eyes: Reports Conjunctiva clear ENT: Reports Nose normal and Oropharynx normal Neck: Not Examined Respiratory: Reports Rhonchi (scattared) Cardiovascular: Reports RRR and Tachycardia GI/: Reports Soft and Nontender Musculoskeletal: Reports ROM intact Skin: Reports Warm and Dry Neurological: Reports Motor intact and Disoriented Psychiatric: Reports Anxious Interpretation EKG Interpretation Time of EKG #1: 17:37 Rate: Tachy Rhythm: Other (Atrial Fibrillation) Ectopy: None [place]: [place] ST Segment: Normal 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 Critical Care Note Critical Care Note Total Critical Care Time (mins): 30 Course Course Hematology/Chemistry: 10/24/21 19:05 10/24/21 19:05 Orders, Labs, Meds: Lab Review 10/24/21 10/24/21 10/24/21 19:05 19:05 19:05 WBC 18.27 H RBC 3.22 L Hgb 9.6 L Hct 29.0 L MCV 90.1 MCH 29.8 MCHC 33.1 RDW Coeff of Zena 18.4 H Plt Count 216 Neutrophils % (Manual) 86.0 H Lymphocytes % (Manual) 7.0 L Monocytes % (Manual) 4.0 Metamyelocytes % 3.0 H Anisocytosis Not present Sodium 138.5 Potassium 3.51 Chloride 100.1 Carbon Dioxide 30.5 H Anion Gap 11.41 BUN 17.3 H Creatinine 1.34 H Estimated GFR (MDRD) 37.00 BUN/Creatinine Ratio 12.91 Glucose 126.4 H Calcium 9.15 Total Bilirubin 0.77 AST 28.3 ALT 15.5 Alkaline Phosphatase 93.8 Total Creatine Kinase 57.6 Troponin I 0.043 Total Protein 7.41 Albumin 4.02 Globulin 3.39 Albumin/Globulin Ratio 1.18 Procalcitonin 0.31 H Urine Color Urine Clarity Urine pH Ur Specific [place] Urine Protein Urine Glucose (UA) Urine Ketones Urine Blood Urine Nitrite Urine Bilirubin Urine Urobilinogen Ur Leukocyte Esterase Urine Microscopic RBC Urine Microscopic WBC Ur Squamous Epith Cells SARS CoV-2 RNA Rapid TADEO 10/24/21 10/24/21 19:05 20:10 WBC RBC Hgb Hct MCV MCH MCHC RDW Coeff of [place] Plt Count Neutrophils % (Manual) Lymphocytes % (Manual) Monocytes % (Manual) Metamyelocytes % Anisocytosis Sodium Potassium Chloride Carbon Dioxide Anion Gap BUN Creatinine Estimated GFR (MDRD) BUN/Creatinine Ratio Glucose Calcium Total Bilirubin AST ALT Alkaline Phosphatase Total Creatine Kinase Troponin I Total Protein Albumin Globulin Albumin/Globulin Ratio Procalcitonin Urine Color Yellow Urine Clarity Clear Urine pH 8.5 Ur Specific [place] 1.020 Urine Protein 2+ H Urine Glucose (UA) Negative Urine Ketones Negative Urine Blood Trace-intact H Urine Nitrite Negative Urine Bilirubin Negative Urine Urobilinogen 0.2 Ur Leukocyte Esterase Negative Urine Microscopic RBC 0-2 Urine Microscopic WBC 0-2 Ur Squamous Epith Cells Not present SARS CoV-2 RNA Rapid TADEO Positive H Orders Category Date Time Status [facility] ADMISSION 10/24/21 20:16 Active ABG DRAW REQUEST DAILY@0600 CARDIO 10/25/21 06:00 Ordered ABG DRAW REQUEST DAILY@0600 CARDIO 10/26/21 06:00 Ordered EKG-(ED ONLY) Stat CARDIO 10/24/21 14:49 Completed INCENTIVE SPIROMETRY Routine CARDIO 10/24/21 20:17 Ordered METERED DOSE INHALATION Routine CARDIO 10/24/21 20:19 Ordered CONTINUOUS PULSE OX (NURSING) PULSEOX CARE 10/24/21 20:17 Active TELEMETRY MONITORING TELE CARE 10/24/21 20:17 Completed TELEMETRY MONITORING TELE CARE 10/24/21 20:20 Active ED IV/MEDIPORT/POWERPORT .ONCE EMERGENCY 10/24/21 14:48 Active Straight [ED CATHETER INSERTION AND CARE] .ONCE EMERGENCY 10/24/21 14:45 Active ABG COOX DAILY@0600 LAB 10/25/21 06:00 Ordered ABG COOX DAILY@0600 LAB 10/26/21 06:00 Ordered BLOOD CULTURE (ED ONLY) Stat LAB 10/24/21 14:49 Ordered C-REACTIVE PROTEIN DAILY@0600 LAB 10/25/21 06:00 Ordered C-REACTIVE PROTEIN DAILY@0600 LAB 10/26/21 06:00 Ordered CBC W/ AUTO DIFF Stat LAB 10/24/21 19:05 Completed CBC W/ AUTO DIFF Stat LAB 10/24/21 20:23 Ordered CMP [COMPREHENSIVE METABOLIC PANEL] Stat LAB 10/24/21 20:23 Ordered COMPREHENSIVE METABOLIC PANEL Stat LAB 10/24/21 19:05 Completed CREATINE KINASE Stat LAB 10/24/21 19:05 Completed D-DIMER DAILY@0600 LAB 10/24/21 06:00 Ordered D-DIMER DAILY@0600 LAB 10/25/21 06:00 Ordered D-DIMER DAILY@0600 LAB 10/26/21 06:00 Ordered FERRITIN DAILY@0600 LAB 10/25/21 06:00 Ordered FERRITIN DAILY@0600 LAB 10/26/21 06:00 Ordered LACTIC ACID Stat LAB 10/24/21 14:48 Ordered Lactic Acid Dehydrogenase DAILY@0600 LAB 10/25/21 06:00 Ordered MANUAL DIFFERENTIAL Stat LAB 10/24/21 19:05 Completed PROCALCITONIN Stat LAB 10/24/21 19:05 Completed PT WITH INR DAILY@0600 LAB 10/25/21 06:00 Ordered PT WITH INR DAILY@0600 LAB 10/26/21 06:00 Ordered TROPONIN I DAILY@0600 LAB 10/25/21 06:00 Ordered TROPONIN I DAILY@0600 LAB 10/26/21 06:00 Ordered TROPONIN I Stat LAB 10/24/21 19:05 Completed URINALYSIS C & S IF INDICATED Stat LAB 10/24/21 20:10 Completed 0.9 % Sodium Chloride [Saline Flush] MEDS 10/24/21 14:48 Active 1 syr IVF PRN PRN Acetaminophen [Tylenol] MEDS 10/24/21 19:45 Discontinued 650 mg RC ONCE ONE Albuterol Inhaler(with Spacer) [Ventolin Hfa (Per Puff- MEDS 10/24/21 21:00 Active with Spacer)] 2 puff IH RTTID Budesonide/Formoterol Fumarate [Symbicort 160-4.5 Mcg MEDS 10/24/21 21:00 Active Inhaler] 2 puff IH RTBID Cholecalciferol (Vitamin D3) [Vitamin D] MEDS 10/25/21 09:00 Active 5,000 unit PO DAILY Dexamethasone Sod Phosphate [Decadron] MEDS 10/24/21 20:30 Active 6 mg IM DAILY Doxycycline Hyclate MEDS 10/24/21 21:00 Active 100 mg PO BID Famotidine [Pepcid] MEDS 10/25/21 06:30 Active 40 mg PO BIDAC Haloperidol Lactate [Haldol] MEDS 10/24/21 16:38 Discontinued 2 mg IM ONCE ONE Levothyroxine Sodium [Synthroid] MEDS 10/25/21 06:30 Active 50 mcg PO QDAC Melatonin MEDS 10/24/21 21:00 Pending 20 mg PO BEDTIME Piperacillin Sodium/Tazobactam [Zosyn 3.375 gm] 3.375 MEDS 10/24/21 19:44 Discontinued gm 0.9 % Sodium Chloride [Sodium Chloride] 50 ml IV ONCE Piperacillin Sodium/Tazobactam [Zosyn 3.375 gm] 3.375 MEDS 10/25/21 00:00 Active gm 0.9 % Sodium Chloride [Sodium Chloride] 50 ml IV Q6HR Quetiapine Fumarate [Seroquel] MEDS 10/24/21 21:00 Active 50 mg PO BEDTIME Remdesivir Solution [Veklury] 100 mg MEDS 10/26/21 09:00 Pending 0.9 % Sodium Chloride [Sodium Chloride] 250 ml IV DAILY Remdesivir Solution [Veklury] 200 mg MEDS 10/25/21 09:00 Active 0.9 % Sodium Chloride [Sodium Chloride] 250 ml IV ONCE Sodium Chloride 0.9% [Sodium Chloride] 1,000 ml MEDS 10/24/21 19:18 Active IV BOLUS Trazodone HCl [Desyrel] MEDS 10/24/21 21:00 Active 50 mg PO BEDTIME Zinc Sulfate [Zinc-220] MEDS 10/25/21 09:00 Active 220 mg PO DAILY Ziprasidone Mesylate [Geodon] MEDS 10/24/21 14:45 Discontinued 10 mg IM ONCE ONE Ziprasidone Mesylate [Geodon] MEDS 10/24/21 17:32 Discontinued 5 mg IM ONCE ONE CHEST, 1V AP ONLY Stat RADS 10/24/21 14:49 Completed Medications Generic Name Dose Route Start Last Admin Trade Name Freq PRN Reason Stop Dose Admin Albuterol Sulfate 2 puff 10/24/21 21:00 Albuterol Sulfate (Ventolin Hfa) 18 Gm 1 Puff With Spacer IH RTTID [facility] Budesonide/Formoterol Fumarate 2 puff 10/24/21 21:00 Budesonide/Formoterol Fumarate 160/4.5 Mcg Inhaler RTBID [facility] Cholecalciferol 5,000 unit 10/25/21 09:00 Cholecalciferol (Vitamin D3) 1,000 Unit (25 Mcg) Tablet PO DAILY [facility] Dexamethasone Sodium Phosphate 6 mg 10/24/21 20:30 Dexamethasone Sod Phos 10 Mg/Ml Inj IM DAILY LEE ANN Doxycycline Hyclate 100 mg 10/24/21 21:00 Doxycycline Hyclate 100 Mg Capsule PO 10/27/21 20:59 BID LEE ANN Famotidine 40 mg 10/25/21 06:30 Famotidine 20 Mg Tablet PO BIDAC LEE ANN Sodium Chloride 1,000 mls @ 250 mls/hr 10/24/21 19:18 10/24/21 19:46 Sodium Chloride IV 10/24/21 23:17 250 mls/hr BOLUS STA Administration REMDESIVIR SOLUTION 200 mg/ 290 mls @ 145 mls/hr 10/25/21 09:00 Sodium Chloride IV 10/25/21 10:59 ONCE ONE REMDESIVIR SOLUTION 100 mg/ 270 mls @ 270 mls/hr 10/26/21 09:00 Sodium Chloride IV DAILY LEE ANN Piperacillin Sod/Tazobactam 50 mls @ 50 mls/hr 10/25/21 00:00 Sod 3.375 gm/ Sodium Chloride IV 10/28/21 00:00 Q6HR LEE ANN Levothyroxine Sodium 50 mcg 10/25/21 06:30 Levothyroxine Sodium 50 Mcg Tablet PO QDAC LEE ANN Non-Formulary Medication 20 mg 10/24/21 21:00 Melatonin PO BEDTIME LEE ANN Quetiapine Fumarate 50 mg 10/24/21 21:00 Quetiapine Fumarate 25 Mg Tablet PO BEDTIME LEE ANN Sodium Chloride 1 syr 10/24/21 14:48 0.9% Sodium Chloride 10 Ml Disp.Syrin IVF PRN PRN To flush IV Trazodone HCl 50 mg 10/24/21 21:00 Trazodone Hcl 50 Mg Tablet PO BEDTIME LEE ANN Zinc Sulfate 220 mg 10/25/21 09:00 Zinc Sulfate 220 Mg Capsule PO DAILY LEE ANN Discontinued Medications Generic Name Dose Route Start Last Admin Trade Name Freq PRN Reason Stop Dose Admin Acetaminophen 650 mg 10/24/21 19:45 10/24/21 19:47 Acetaminophen 650 Mg Supp.Rect RC 10/24/21 19:46 650 mg ONCE ONE Administration Haloperidol Lactate 2 mg 10/24/21 16:38 10/24/21 16:57 Haloperidol Lactate 5 Mg/Ml Vial IM 10/24/21 16:39 2 mg ONCE ONE Administration Piperacillin Sod/Tazobactam 50 mls @ 50 mls/hr 10/24/21 19:44 10/24/21 19:57 Sod 3.375 gm/ Sodium Chloride IV 10/24/21 20:43 50 mls/hr ONCE ONE Administration Ziprasidone 10 mg 10/24/21 14:45 10/24/21 14:59 Ziprasidone Mesylate 20 Mg/Ml Vial IM 10/24/21 14:46 10 mg ONCE ONE Administration Ziprasidone 5 mg 10/24/21 17:32 10/24/21 18:33 Ziprasidone Mesylate 20 Mg/Ml Vial IM 10/24/21 17:33 5 mg ONCE ONE Administration Vital Signs: Temp Pulse Resp BP Pulse Ox 10/24/21 14:42 102.0 F H 113 H 20 113/88 88 L Discharge Plan Discharge Patient Disposition: ADMITTED INPATIENT Discharge Problem: COVID-19, Leukocytosis, unspecified, Pneumonia, Fever ED Provider: JEANNINE ARAYA Condition: Fair Physician Progress Note: []
--- NOTE | 2021-10-24 16:22 | DI ---
EXAM: Single frontal view of the chest HISTORY: Chest pain. COMPARISON: Chest x-ray 10/13/2021 FINDINGS: Cardiomediastinal silhouette is unremarkable. There is no pneumothorax or effusion. There are interstitial ground-glass opacities in the lung bases. The osseous structures demonstrate degen erative disease. IMPRESSION: Interstitial ground-glass opacities and both lungs with minimal improvement in the left lower lobe when compared to prior examination.
[2021-10-24] MEDS ORDERED: HALDOL IM ONE (16:38)
[2021-10-24 19:15] LABS: HEMOGLOBIN 9.6 g/dl (12.0-16.0); MEAN CORPUSCULAR HEMOGLOBIN 29.8 pg (27.0-31.0); MEAN CORPUSCULAR HGB CONC 33.1 (31.8-35.4); MEAN CORPUSCULAR VOLUME 90.1 fl (81.0-99.0); PLATELET COUNT 216 10^3/uL (140-440); RDW COEFFICIENT OF VARIATION 18.4 % (11.6-14.8); RED BLOOD COUNT 3.22 10^6/ul (4.20-5.40); WHITE BLOOD COUNT 18.27 K/ul (4.6-10.2)
[2021-10-24] MEDS ORDERED: SODIUM CHLORIDE 1,000 ML IV STA (19:18)
[2021-10-24 19:21] LABS: ANISOCYTOSIS NOT PRESENT (NOT PRESENT)
[2021-10-24 19:25] LABS: ALANINE AMINOTRANSFERASE 15.5 U/L (0-35); ALBUMIN 4.02 g/dL (3.5-5.0); ALKALINE PHOSPHATASE 93.8 U/L (53-141); ASPARTATE AMINO TRANSFERASE 28.3 U/L (14-36); BILIRUBIN,TOTAL 0.77 mg/dL (0.2-1.3); BLOOD UREA NITROGEN 17.3 mg/dL (7-17); CALCIUM 9.15 mg/dL (8.4-10.2); CARBON DIOXIDE 30.5 mmol/L (22-30.0); CHLORIDE 100.1 mmol/L (98-107); CREATINE KINASE 57.6 U/L (30-135); CREATININE 1.34 mg/dL (0.60-1.30); GLUCOSE 126.4 mg/dL (74-106); POTASSIUM 3.51 mmol/L (3.5-5.1); SODIUM 138.5 mmol/L (134.5-145); TOTAL PROTEIN 7.41 g/dL (6.3-8.2)
[2021-10-24 19:36] LABS: TROPONIN I 0.043 ng/ml (0.0000-0.120)
[2021-10-24] MEDS ORDERED: ZOSYN 3.375 GM 3.375 GM in SODIUM CHLORIDE 50 ML IV ONE (19:44)
[2021-10-24] MEDS ORDERED: TYLENOL RC ONE (19:45)
[2021-10-24 20:19] LABS: BILIRUBIN,URINE Negative (NEGATIVE); CLARITY,URINE Clear (CLEAR); COLOR,URINE Yellow (YELLOW); GLUCOSE, URINE (UA) Negative (NEGATIVE); KETONES,URINE Negative (NEGATIVE); LEUKOCYTE ESTERASE ,URINE Negative (NEGATIVE); NITRITE,URINE Negative (NEGATIVE); PH,URINE 8.5 (5-9); PROTEIN,URINE 2+ (NEGATIVE); URINE, BLOOD Trace-intact (NEGATIVE); UROBILINOGEN,URINE 0.2 (0.2)
[2021-10-24 20:26] LABS: SQUAMOUS EPITHELIAL CELL,UR NOT PRESENT (0-5); URINE RBC, MICROSCOPIC 0-2 (0-2); URINE WBC, MICROSCOPIC 0-2 (0-2)
[2021-10-24] MEDS: DECADRON IM SCH (22:03)
[2021-10-24] MEDS: DOXYCYCLINE HYCLATE PO SCH (22:41)
[2021-10-24] MEDS: SEROQUEL PO SCH (22:42)
[2021-10-24] MEDS: DESYREL PO SCH (22:42)
[2021-10-24] MEDS: SYMBICORT 160-4.5 MCG INHALER IH SCH (22:42)
[2021-10-24] MEDS: VENTOLIN HFA (PER PUFF-WITH SPACER) IH SCH (23:10)
[2021-10-24 23:25] VITALS: BMI 21.0
[2021-10-24 23:53] LABS: ABG PH 7.58 (7.35-7.45); BEecf 6.2 (-2.0-3.0); COHb 1.7 (0.5-1.5); HCO3 28.1 (21-28); MetHb 1.8 (0-1.5)
[2021-10-24 23:54] LABS: ABG O2 HGB 92.5 % (95-100); sO2 94.8 % (94-98); tHb 8.9 g/dl (11.7-17.4)
[2021-10-25] MEDS: ZOSYN 3.375 GM 3.375 GM in SODIUM CHLORIDE 50 ML IV SCH ×4 (00:10→17:12)
[2021-10-25] MEDS: SYMBICORT 160-4.5 MCG INHALER IH SCH ×3 (00:43→17:13)
[2021-10-25] MEDS: VENTOLIN HFA (PER PUFF-WITH SPACER) IH SCH ×3 (04:50→19:40)
[2021-10-25 06:00] LABS: ALANINE AMINOTRANSFERASE 14.7 U/L (0-35); ALBUMIN 3.59 g/dL (3.5-5.0); ALKALINE PHOSPHATASE 82.1 U/L (53-141); ASPARTATE AMINO TRANSFERASE 26.7 U/L (14-36); BILIRUBIN,TOTAL 0.65 mg/dL (0.2-1.3); BLOOD UREA NITROGEN 18.5 mg/dL (7-17); CALCIUM 8.97 mg/dL (8.4-10.2); CARBON DIOXIDE 31.3 mmol/L (22-30.0); CREATININE 1.31 mg/dL (0.60-1.30); GLUCOSE 183.3 mg/dL (74-106); POTASSIUM 3.55 mmol/L (3.5-5.1); SODIUM 139.8 mmol/L (134.5-145); TOTAL PROTEIN 6.78 g/dL (6.3-8.2)
[2021-10-25 06:08] LABS: PROTHROMBIN TIME 11.4 SEC (9.3-11.0)
[2021-10-25] MEDS: SYNTHROID PO SCH (06:10)
[2021-10-25] MEDS: PEPCID PO SCH ×2 (06:11→17:12)
[2021-10-25 06:12] LABS: TROPONIN I 0.039 ng/ml (0.0000-0.120)
[2021-10-25 06:33] LABS: HEMATOCRIT 31.3 % (37.0-47.0); MEAN CORPUSCULAR HGB CONC 31.9 (31.8-35.4); MEAN CORPUSCULAR VOLUME 90.7 fl (81.0-99.0); PLATELET COUNT 220 10^3/uL (140-440); RDW COEFFICIENT OF VARIATION 18.6 % (11.6-14.8); RED BLOOD COUNT 3.45 10^6/ul (4.20-5.40); WHITE BLOOD COUNT 22.07 K/ul (4.6-10.2)
[2021-10-25 07:02] LABS: ANISOCYTOSIS NOT PRESENT (NOT PRESENT)
[2021-10-25] MEDS: NON-FORMULARY MEDICATION (Melatonin 20 MG) PO SCH ×2 (07:49→20:58)
[2021-10-25] MEDS ORDERED: VEKLURY 200 MG in SODIUM CHLORIDE 250 ML IV ONE (09:00)
[2021-10-25] MEDS: DECADRON IM SCH (09:15)
[2021-10-25] MEDS: ZINC-220 PO SCH (09:15)
[2021-10-25] MEDS: DOXYCYCLINE HYCLATE PO SCH ×2 (09:15→20:57)
[2021-10-25] MEDS: VITAMIN D PO SCH (09:15)
[2021-10-25] MEDS: SEROQUEL PO SCH (20:57)
[2021-10-25] MEDS: DESYREL PO SCH (20:57)
[2021-10-25] MEDS: GEODON IM PRN (22:56)
[2021-10-26] MEDS: ZOSYN 3.375 GM 3.375 GM in SODIUM CHLORIDE 50 ML IV SCH ×4 (00:36→17:50)
[2021-10-26] MEDS: VENTOLIN HFA (PER PUFF-WITH SPACER) IH SCH ×3 (04:45→20:05)
[2021-10-26 04:47] LABS: ABG PH 7.55 (7.35-7.45)
[2021-10-26 04:48] LABS: BEecf 5.6 (-2.0-3.0); COHb 2.9 (0.5-1.5); HCO3 28 (21-28); MetHb 0.8 (0-1.5); TCO2 29 (19-24); sO2 88.9 % (94-98); tHb 8.3 g/dl (11.7-17.4)
[2021-10-26 04:49] LABS: ABG O2 HGB 85.9 % (95-100)
[2021-10-26] MEDS: GEODON IM PRN (04:58)
[2021-10-26 05:42] LABS: HEMATOCRIT 30.4 % (37.0-47.0); HEMOGLOBIN 9.7 g/dl (12.0-16.0); MEAN CORPUSCULAR HEMOGLOBIN 28.8 pg (27.0-31.0); MEAN CORPUSCULAR HGB CONC 31.9 (31.8-35.4); MEAN CORPUSCULAR VOLUME 90.2 fl (81.0-99.0); PLATELET COUNT 303 10^3/uL (140-440); RDW COEFFICIENT OF VARIATION 18.6 % (11.6-14.8); RED BLOOD COUNT 3.37 10^6/ul (4.20-5.40); WHITE BLOOD COUNT 39.67 K/ul (4.6-10.2)
[2021-10-26 05:48] LABS: ANISOCYTOSIS NOT PRESENT (NOT PRESENT)
[2021-10-26 06:04] LABS: TROPONIN I 0.024 ng/ml (0.0000-0.120)
[2021-10-26] MEDS: PEPCID PO SCH ×2 (06:05→16:01)
[2021-10-26] MEDS: SYNTHROID PO SCH (06:06)
[2021-10-26 07:22] LABS: C-REACTIVE PROTEIN 173 mg/L (0-10)
[2021-10-26] MEDS: DOXYCYCLINE HYCLATE PO SCH ×2 (08:42→20:27)
[2021-10-26] MEDS: DECADRON IM SCH (08:42)
[2021-10-26] MEDS: ZINC-220 PO SCH (08:43)
[2021-10-26] MEDS: VITAMIN D PO SCH (08:43)
[2021-10-26] MEDS: SYMBICORT 160-4.5 MCG INHALER IH SCH ×2 (10:54→20:28)
[2021-10-26] MEDS ORDERED: VEKLURY 100 MG in SODIUM CHLORIDE 250 ML IV SCH (12:00)
[2021-10-26] MEDS: SEROQUEL PO SCH ×2 (15:53→20:27)
[2021-10-26 17:22] LABS: ALANINE AMINOTRANSFERASE 22.5 U/L (0-35); ALBUMIN 3.9 g/dL (3.5-5.0); ALKALINE PHOSPHATASE 96.8 U/L (53-141); ASPARTATE AMINO TRANSFERASE 38.8 U/L (14-36); BILIRUBIN,TOTAL 0.58 mg/dL (0.2-1.3); CALCIUM 8.95 mg/dL (8.4-10.2); CARBON DIOXIDE 25.6 mmol/L (22-30.0); CHLORIDE 105.3 mmol/L (98-107); CREATININE 1.42 mg/dL (0.60-1.30); GLUCOSE 141.7 mg/dL (74-106); POTASSIUM 3.07 mmol/L (3.5-5.1); SODIUM 142.3 mmol/L (134.5-145); TOTAL PROTEIN 7.32 g/dL (6.3-8.2)
[2021-10-26] MEDS: K-DUR PO SCH (18:20)
[2021-10-26] MEDS: DESYREL PO SCH (20:26)
[2021-10-26] MEDS: ZYPREXA PO SCH (20:27)
[2021-10-26] MEDS: NON-FORMULARY MEDICATION (Melatonin 20 MG) PO SCH (20:27)
[2021-10-27] MEDS: ZOSYN 3.375 GM 3.375 GM in SODIUM CHLORIDE 50 ML IV SCH ×4 (00:05→17:37)
[2021-10-27] MEDS: VENTOLIN HFA (PER PUFF-WITH SPACER) IH SCH ×3 (05:05→19:45)
[2021-10-27] MEDS: PEPCID PO SCH ×2 (06:04→16:45)
[2021-10-27] MEDS: SYNTHROID PO SCH (06:04)
[2021-10-27 06:18] LABS: BASOPHILS # (AUTO) 0.1 K/uL (0-0.2); BASOPHILS % (AUTO) 0.2 % (0.0-3.0); HEMATOCRIT 24.6 % (37.0-47.0); HEMOGLOBIN 7.9 g/dl (12.0-16.0); IMMATURE GRANULOCYTE # (AUTO) 4.3 (0.0-1.0); IMMATURE GRANULOCYTE % (AUTO) 12.9 % (0.0-5.0); LYMPHOCYTES # (AUTO) 0.9 K/uL (0.60-3.4); LYMPHOCYTES % (AUTO) 2.6 (10.0-50.0); MEAN CORPUSCULAR HEMOGLOBIN 29.2 pg (27.0-31.0); MEAN CORPUSCULAR HGB CONC 32.1 (31.8-35.4); MEAN CORPUSCULAR VOLUME 90.8 fl (81.0-99.0); MONOCYTES # (AUTO) 0.7 K/uL (0.4-2.0); NEUTROPHILS # (AUTO) 27.7 K/ul (2.0-6.9); NEUTROPHILS % (AUTO) 82.3 % (42.2-75.2); PLATELET COUNT 226 10^3/uL (140-440); RED BLOOD COUNT 2.71 10^6/ul (4.20-5.40); WHITE BLOOD COUNT 33.61 K/ul (4.6-10.2)
[2021-10-27 06:32] LABS: ALANINE AMINOTRANSFERASE 25.2 U/L (0-35); ALBUMIN 3.23 g/dL (3.5-5.0); ALKALINE PHOSPHATASE 68.6 U/L (53-141); ASPARTATE AMINO TRANSFERASE 50.6 U/L (14-36); BILIRUBIN,TOTAL 0.5 mg/dL (0.2-1.3); CALCIUM 8.26 mg/dL (8.4-10.2); CARBON DIOXIDE 24.7 mmol/L (22-30.0); CHLORIDE 111.7 mmol/L (98-107); CREATININE 1.43 mg/dL (0.60-1.30); GLUCOSE 101.5 mg/dL (74-106); POTASSIUM 2.85 mmol/L (3.5-5.1); SODIUM 141.6 mmol/L (134.5-145); TOTAL PROTEIN 6.19 g/dL (6.3-8.2)
[2021-10-27] MEDS: DECADRON IM SCH (10:05)
[2021-10-27] MEDS: DOXYCYCLINE HYCLATE PO SCH ×2 (10:06→20:27)
[2021-10-27] MEDS: ZINC-220 PO SCH (10:06)
[2021-10-27] MEDS: K-DUR PO SCH (10:06)
[2021-10-27] MEDS: SEROQUEL PO SCH ×3 (10:07→20:27)
[2021-10-27] MEDS: VITAMIN D PO SCH (10:07)
[2021-10-27] MEDS: SYMBICORT 160-4.5 MCG INHALER IH SCH ×2 (10:09→20:27)
[2021-10-27] MEDS: POTASSIUM CHL 10% ORAL SOL PO SCH ×3 (16:45→21:04)
[2021-10-27] MEDS: ZYPREXA PO SCH (20:27)
[2021-10-27] MEDS: NON-FORMULARY MEDICATION (Melatonin 20 MG) PO SCH (20:27)
[2021-10-27] MEDS: DESYREL PO SCH (20:27)
[2021-10-28] MEDS: ZOSYN 3.375 GM 3.375 GM in SODIUM CHLORIDE 50 ML IV SCH (00:55)
[2021-10-28] MEDS: VENTOLIN HFA (PER PUFF-WITH SPACER) IH SCH ×3 (04:30→20:20)
[2021-10-28 06:03] LABS: HEMATOCRIT 25.4 % (37.0-47.0); HEMOGLOBIN 8.2 g/dl (12.0-16.0); MEAN CORPUSCULAR HEMOGLOBIN 29.6 pg (27.0-31.0); MEAN CORPUSCULAR HGB CONC 32.3 (31.8-35.4); MEAN CORPUSCULAR VOLUME 91.7 fl (81.0-99.0); PLATELET COUNT 225 10^3/uL (140-440); RDW COEFFICIENT OF VARIATION 19.1 % (11.6-14.8); RED BLOOD COUNT 2.77 10^6/ul (4.20-5.40); WHITE BLOOD COUNT 18.53 K/ul (4.6-10.2)
[2021-10-28 06:14] LABS: ANISOCYTOSIS NOT PRESENT (NOT PRESENT)
[2021-10-28 06:18] LABS: CALCIUM 8.38 mg/dL (8.4-10.2); CARBON DIOXIDE 24.2 mmol/L (22-30.0); CHLORIDE 114.5 mmol/L (98-107); CREATININE 1.33 mg/dL (0.60-1.30); GLUCOSE 108.3 mg/dL (74-106); POTASSIUM 3.82 mmol/L (3.5-5.1); SODIUM 143.7 mmol/L (134.5-145)
[2021-10-28] MEDS: PEPCID PO SCH ×2 (06:18→17:35)
[2021-10-28] MEDS: SYNTHROID PO SCH (06:19)
[2021-10-28] MEDS: DECADRON IM SCH (08:28)
[2021-10-28] MEDS: VITAMIN D PO SCH (08:28)
[2021-10-28] MEDS: SYMBICORT 160-4.5 MCG INHALER IH SCH ×2 (08:28→20:19)
[2021-10-28] MEDS: DOXYCYCLINE HYCLATE PO SCH (08:28)
[2021-10-28] MEDS: SEROQUEL PO SCH ×3 (08:28→20:17)
[2021-10-28] MEDS: ZINC-220 PO SCH (08:31)
[2021-10-28 10:07] LABS: IRON 79.1 ug/dL (37-170)
[2021-10-28] MEDS: GEODON IM PRN (14:49)
[2021-10-28] MEDS: ZYPREXA PO SCH (20:17)
[2021-10-28] MEDS: DESYREL PO SCH (20:17)
[2021-10-28] MEDS: NON-FORMULARY MEDICATION (Melatonin 20 MG) PO SCH (20:18)
[2021-10-29] MEDS: GEODON IM PRN (02:03)
[2021-10-29] MEDS: VENTOLIN HFA (PER PUFF-WITH SPACER) IH SCH ×3 (05:15→20:10)
[2021-10-29 05:17] LABS: HEMOGLOBIN 9.2 g/dl (12.0-16.0); MEAN CORPUSCULAR HGB CONC 31.7 (31.8-35.4); MEAN CORPUSCULAR VOLUME 91.5 fl (81.0-99.0); PLATELET COUNT 276 10^3/uL (140-440); RDW COEFFICIENT OF VARIATION 18.9 % (11.6-14.8); RED BLOOD COUNT 3.17 10^6/ul (4.20-5.40); WHITE BLOOD COUNT 26.61 K/ul (4.6-10.2)
[2021-10-29] MEDS: PEPCID PO SCH ×2 (05:31→16:00)
[2021-10-29 05:32] LABS: BLOOD UREA NITROGEN 21.1 mg/dL (7-17); CALCIUM 9.16 mg/dL (8.4-10.2); CARBON DIOXIDE 26.1 mmol/L (22-30.0); CHLORIDE 110.9 mmol/L (98-107); CREATININE 1.19 mg/dL (0.60-1.30); GLUCOSE 97.8 mg/dL (74-106); POTASSIUM 3.54 mmol/L (3.5-5.1); SODIUM 142.3 mmol/L (134.5-145)
[2021-10-29] MEDS: SYNTHROID PO SCH (05:32)
[2021-10-29 06:20] LABS: ANISOCYTOSIS NOT PRESENT (NOT PRESENT)
[2021-10-29] MEDS: SEROQUEL PO SCH ×3 (08:34→20:07)
[2021-10-29] MEDS: DECADRON IM SCH (08:34)
[2021-10-29] MEDS: ZINC-220 PO SCH (08:34)
[2021-10-29] MEDS: VITAMIN D PO SCH (08:34)
[2021-10-29] MEDS: SYMBICORT 160-4.5 MCG INHALER IH SCH ×2 (09:06→20:08)
[2021-10-29] MEDS ORDERED: MORPHINE 2 MG/ML VIAL IVP STA (16:00)
--- NOTE | 2021-10-29 17:59 | CT ---
EXAM: CT abdomen and pelvis without contrast. HISTORY: Abdominal pain. TECHNIQUE: Multi-slice transaxial helical CT. Coronal and sagittal reformatons were performed. COMPARISON: 10/05/2021 FINDINGS: The heart is normal in size. Mild calcified plaques are seen within the coronary arteries. Multi fo rosie bilateral patchy airspace opacities are seen within the lung bases which appears worsened compare d to prior exam. Evaluation of the solid organs is limited without IV contrast. Examination is further limited by sig nificant motion artifacts. The gallbladder is not well visualized on this exam. The spleen appears grossly normal in size. The pancreas and adrenal glands appear grossly unremarkable within the confi yesy of this exam. Note definite evidence of intrahepatic biliary ductal dilation is seen. Again see n is a circumscribed water density cyst in the right liver. No evidence of hydronephrosis or renal c alculus is seen. The bowel is not dilated. Urinary bladder appears grossly unremarkable. Pelvic floor relaxation is suggested. The uterus has been removed. No evidence of pelvic free fluid is seen. Multiple small d iverticuli are seen within the colon without evidence of diverticulitis. There is significantly limi jessica evaluation of the bowel secondary to motion artifacts and lack of contrast. Multiple air-fluid l evels are seen within bowel loops. A [id number] amount of calcified plaques are seen within t he abdominal aorta. No evidence of a intra-abdominal free air is seen. Multilevel up to advanced melissa mbar spondylosis is seen. Mild compression deformity of T11 is not significantly changed. :::::::::::::::::::::::::::::: IMPRESSION: 1. Interval worsened bilateral pneumonia. Correlate for COVID-19. 2. Multiple air-fluid levels seen within nondilated bowel. This is nonspecific and can be seen with ileus or enteritis. 3. Significantly limited exam secondary to lack of contrast and motion artifacts. 4. Colonic diverticulosis. 5. Other chronic/incidental findings as above. :::::::::::::::::::::::::::::: All CT scans are performed using dose optimization techniques as appropriate to the performed exam an d include at least one of the following: Automated exposure control, adjustment of the mA and/or kV according t o size, and the use of iterative reconstruction technique.
[2021-10-29] MEDS ORDERED: ZOSYN 3.375 GM 3.375 GM in SODIUM CHLORIDE 50 ML IV STA (18:08)
[2021-10-29] MEDS ORDERED: MORPHINE 2 MG/ML VIAL IVP PRN (18:27)
[2021-10-29] MEDS: ZYPREXA PO SCH (20:07)
[2021-10-29] MEDS: DESYREL PO SCH (20:07)
[2021-10-29] MEDS ORDERED: MELATONIN 10 MG PO SCH (21:00)
[2021-10-29] MEDS ORDERED: VANCOMYCIN 1 GM in SODIUM CHLORIDE 250 ML IV SCH (21:00)
[2021-10-30] MEDS ORDERED: ZOSYN 3.375 GM 3.375 GM in SODIUM CHLORIDE 50 ML IV SCH ×2
[2021-10-30] MEDS: VENTOLIN HFA (PER PUFF-WITH SPACER) IH SCH (04:55)
[2021-10-30 05:07] VITALS: BP 154/78; TEMP 97.3
[2021-10-30] MEDS: SYNTHROID PO SCH (05:34)
[2021-10-30 05:43] LABS: HEMATOCRIT 25.7 % (37.0-47.0); HEMOGLOBIN 8.3 g/dl (12.0-16.0); MEAN CORPUSCULAR HGB CONC 32.3 (31.8-35.4); MEAN CORPUSCULAR VOLUME 89.9 fl (81.0-99.0); PLATELET COUNT 272 10^3/uL (140-440); RDW COEFFICIENT OF VARIATION 18.9 % (11.6-14.8); RED BLOOD COUNT 2.86 10^6/ul (4.20-5.40); WHITE BLOOD COUNT 21.74 K/ul (4.6-10.2)
[2021-10-30 05:58] LABS: ALANINE AMINOTRANSFERASE 29.9 U/L (0-35); ALBUMIN 3.29 g/dL (3.5-5.0); ALKALINE PHOSPHATASE 70.3 U/L (53-141); ASPARTATE AMINO TRANSFERASE 31.3 U/L (14-36); BILIRUBIN,TOTAL 0.48 mg/dL (0.2-1.3); BLOOD UREA NITROGEN 23.1 mg/dL (7-17); CALCIUM 8.95 mg/dL (8.4-10.2); CARBON DIOXIDE 28.6 mmol/L (22-30.0); CHLORIDE 106.4 mmol/L (98-107); CREATININE 1.18 mg/dL (0.60-1.30); GLUCOSE 93.5 mg/dL (74-106); POTASSIUM 3.83 mmol/L (3.5-5.1); TOTAL PROTEIN 6.23 g/dL (6.3-8.2)
[2021-10-30 06:19] LABS: ANISOCYTOSIS NOT PRESENT (NOT PRESENT)
[2021-10-30] MEDS: PEPCID PO SCH (07:51)
[2021-10-30] MEDS: VITAMIN D PO SCH (08:17)
[2021-10-30] MEDS: ZINC-220 PO SCH (08:18)
[2021-10-30] MEDS: DECADRON IM SCH (08:18)
[2021-10-30] MEDS: SEROQUEL PO SCH (08:18)
[2021-10-30] MEDS: SYMBICORT 160-4.5 MCG INHALER IH SCH (08:43)
--- NOTE | 2022-01-23 14:45 | HP ---
CHIEF COMPLAINT: DISCUSSION: 86 year old lady with history of COPD. Recently discharged from [facility], was admitted for pneumonia now presented to the emergency department with change in mental status associated agitation dilirium. She has had fever. She was exposed to other residents who had COVID 19 and in the emergency department she was found to have COVID 19 with leukocytosis and pneumonia and fever. She had a temperature of 102 and because of this she was admitted to services for further evaluation and treatment. PAST MEDICAL HISTORY: MEDICATIONS: Vitamin D Levothyroxine Melatonin Protonix Seroquel Trazodone PAST MEDICAL HISTORY: Dementia History of depression GERD Hypothyroidism PAST SURGICAL HISTORY: Hysterectomy SOCIAL HISTORY: No history of alcohol, tobacco or illicit drug use. FAMILY HISTORY: Reviewed and thought not to be pertinent to discussion. REVIEW OF SYSTEMS: No headaches, visual changes, tinnitus, chest pain, shortness of breath, hemoptysis, abdominal pain, blood in the stool, urinary symptoms or seizures. PHYSICAL EXAMINATION: V/S: Temperature 102, pulse 70, respiratory rate 18, blood pressure 120/80 HEENT: Pupils are round. NECK: Supple. CHEST: Scattered rhonchi CARDIOVASCULAR: Regular rate and rhythm. ABDOMEN: Soft, nontender. EXTREMITIES: Distal extremities without cyanosis or edema. ASSESSMENT: 1. Acute hypoxic respiratory failure 2. COVID 19 infection 3. Dementia PLAN: 1. Had a long discussion with the patient's GLENDYA Kerry and indicated that only wanted comfort measures. She has declined antiviral treatment at this point. At this point we are giving her antibiotic therapy and supported with oxygen 2. Please see orders. MTDD
--- NOTE | 2022-01-23 14:49 | DS ---
PRINCIPAL DIAGNOSIS: 1. COVID 19 pneumonia 2. Dementia DISCUSSION: This is an 87 year old lady who presented with confusion, temperature of 102, cough and fever at assisted living she was exposed to several residents who had COVID 19 and presented to the emergency department and admitted to my services. CLINICAL COURSE: She was admitted for oxygen support and pulmonary support. Her POA had declined antiviral treatment therefore she was admitted and given oxygen, antibiotics. She did defervesce. Her PO intake improved. We had discussion about further treatment and care her POA indicated that she wanted Hospice measure for comfort therefore the patient was discharged with Hospice Care. DOLLY
== END 2021-10-30 13:28 | disposition home or self-care (01) | DRG 177 ==
LOC: ED 14:26 → SCU 20:36
PROVIDERS: ADMIT Family Medicine; ATTEND Family Medicine
DX: U07.1 COVID-19; Z51.81 Encounter for therapeutic drug level monitoring; F03.91 Unspecified dementia, unspecified severity, with behavioral disturbance; Z99.81 Dependence on supplemental oxygen; Z79.899 Other long term (current) drug therapy; J96.01 Acute respiratory failure with hypoxia

== ENCOUNTER 2022-08-28 20:00 | Inpatient (IN) ==
--- NOTE | 2022-08-28 20:25 | ED.PDOC ---
General ED Provider: Dr. JUANI HICKMAN Chief Complaint: Non-specific Complaint Time Seen by Provider: 08/28/22 20:24 Mode of Arrival: Walk-In Information Source: Patient Primary Care Provider: ITALIA CARRERA Sepsis Protocol: For patient's 13 years and over: Temp is 96.8 and below OR 101 and greater Pulse >90 BPM Resp >20/minute Acutely Altered Mental Status Are patient's symptoms suggestive of a new infection, such as: -Pneumonia -Skin, Soft Tissue -Endocarditis -UTI -Bone, Joint Infection -Implantable Device -Acute Abdominal Infection -Wound Infection -Meningitis -Blood Stream Catheter Infection -Unknown [facility] Medical History Dementia Depression GERD (gastroesophageal reflux disease) Hypothyroidism Social History Smoking and tobacco status: Never smoker Surgical History History of hysterectomy Female Reproductive History Menstrual Hx Hysterectomy: No Hx Tubal Ligation: No Course Course Vital Signs: Temp Pulse Resp BP Pulse Ox 08/28/22 20:05 98.6 F 140 H 24 H 135/89 94 L Discharge Plan Discharge Prescriptions: No Action levothyroxine [Synthroid] 50 mcg Tablet 50 mcg PO QDAC 0RF trazodone 50 mg Tablet 50 mg PO BEDTIME 0RF pantoprazole 40 mg Tablet,Delayed Release (Dr/Ec) 40 mg PO DAILY melatonin 10 mg Capsule 20 mg PO BEDTIME ergocalciferol (vitamin D2) 50,000 unit Capsule 50,000 unit PO WEEKLY quetiapine [Seroquel] 25 mg Tablet 25 mg PO TID ED Provider: JUANI HICKMAN Physician Progress Note: []
[2022-08-28] MEDS ORDERED: CARDIZEM PO ONE (20:39)
[2022-08-28 21:10] LABS: HEMATOCRIT 29.9 % (37.0-47.0); HEMOGLOBIN 9.2 g/dl (12.0-16.0); MEAN CORPUSCULAR HEMOGLOBIN 29.6 pg (27.0-31.0); MEAN CORPUSCULAR HGB CONC 30.8 (31.8-35.4); MEAN CORPUSCULAR VOLUME 96.1 fl (81.0-99.0); PLATELET COUNT 159 10^3/uL (140-440); RDW COEFFICIENT OF VARIATION 18.9 % (11.6-14.8); RED BLOOD COUNT 3.11 10^6/ul (4.20-5.40); WHITE BLOOD COUNT 12.12 K/ul (4.6-10.2)
[2022-08-28 21:19] LABS: ANISOCYTOSIS NOT PRESENT (NOT PRESENT)
[2022-08-28 21:23] LABS: ALANINE AMINOTRANSFERASE 26.5 U/L (0-35); ALBUMIN 4.25 g/dL (3.5-5.0); ALKALINE PHOSPHATASE 88.4 U/L (53-141); BILIRUBIN,TOTAL 0.61 mg/dL (0.2-1.3); BLOOD UREA NITROGEN 27.8 mg/dL (7-17); CALCIUM 9.86 mg/dL (8.4-10.2); CARBON DIOXIDE 25.8 mmol/L (22-30.0); CHLORIDE 107.5 mmol/L (98-107); CREATININE 1.24 mg/dL (0.60-1.30); GLUCOSE 128.6 mg/dL (74-106); MAGNESIUM 2.03 mg/dL (1.6-2.3); POTASSIUM 4.12 mmol/L (3.5-5.1); SODIUM 140.5 mmol/L (134.5-145); TOTAL PROTEIN 7.25 g/dL (6.3-8.2)
--- NOTE | 2022-08-28 21:33 | DI ---
EXAM: Portable chest HISTORY: Palpitations COMPARISON: Single-view chest 07/24/2022 FINDINGS: Patient is mildly rotated to left. The cardiomediastinal l silhouette is stable. There i s moderate sized left pleural effusion with left basilar consolidation. Opacity overlying the right lateral costophrenic angle. IMPRESSION: Moderate sized left pleural effusion with left basilar consolidation.
[2022-08-28 21:34] LABS: TROPONIN I 0.028 ng/ml (0.0000-0.120)
[2022-08-28 21:53] LABS: THYROID STIMULATING HORMONE 2.99 uIU/L (0.465-4.68)
[2022-08-28] MEDS ORDERED: LEVAQUIN PO ONE (22:27)
[2022-08-28] MEDS ORDERED: CARDIZEM CD PO ONE (22:28)
[2022-08-28 22:44] LABS: MOLECULAR FLU A NEGATIVE BY NAAT (NEGATIVE); MOLECULAR FLU B NEGATIVE BY NAAT (NEGATIVE)
[2022-08-28] MEDS ORDERED: TYLENOL PO PRN (23:04)
[2022-08-28] MEDS ORDERED: NITROSTAT SL PRN (23:04)
[2022-08-28] MEDS ORDERED: XANAX PO ONE (23:18)
[2022-08-29] MEDS ORDERED: CARDIZEM PO ONE (00:59)
[2022-08-29] MEDS: DESYREL PO SCH ×2 (01:14→20:18)
[2022-08-29] MEDS: SEROQUEL PO SCH ×4 (01:14→20:18)
[2022-08-29 01:26] VITALS: BMI 20.9
[2022-08-29] MEDS ORDERED: LOVENOX SUBCUT ONE (02:53)
[2022-08-29 05:22] LABS: BASOPHILS # (AUTO) 0.1 K/uL (0-0.2); BASOPHILS % (AUTO) 0.7 % (0.0-3.0); EOSINOPHILS % (AUTO) 0.1 % (0.0-7.0); HEMATOCRIT 29.2 % (37.0-47.0); IMMATURE GRANULOCYTE # (AUTO) 0.8 (0.0-1.0); IMMATURE GRANULOCYTE % (AUTO) 5.8 % (0.0-5.0); LYMPHOCYTES # (AUTO) 1.6 K/uL (0.60-3.4); LYMPHOCYTES % (AUTO) 11.9 (10.0-50.0); MEAN CORPUSCULAR HEMOGLOBIN 29.5 pg (27.0-31.0); MEAN CORPUSCULAR HGB CONC 30.8 (31.8-35.4); MEAN CORPUSCULAR VOLUME 95.7 fl (81.0-99.0); MONOCYTES # (AUTO) 1.1 K/uL (0.4-2.0); MONOCYTES % (AUTO) 8.2 (0-10); NEUTROPHILS # (AUTO) 9.9 K/ul (2.0-6.9); NEUTROPHILS % (AUTO) 73.3 % (42.2-75.2); PLATELET COUNT 144 10^3/uL (140-440); RDW COEFFICIENT OF VARIATION 18.6 % (11.6-14.8); RED BLOOD COUNT 3.05 10^6/ul (4.20-5.40); WHITE BLOOD COUNT 13.51 K/ul (4.6-10.2)
[2022-08-29 05:35] LABS: ALBUMIN 3.85 g/dL (3.5-5.0); ALKALINE PHOSPHATASE 91.5 U/L (53-141); ASPARTATE AMINO TRANSFERASE 30.7 U/L (14-36); BILIRUBIN,TOTAL 0.74 mg/dL (0.2-1.3); BLOOD UREA NITROGEN 26.5 mg/dL (7-17); CALCIUM 9.46 mg/dL (8.4-10.2); CARBON DIOXIDE 24.7 mmol/L (22-30.0); CHLORIDE 108.8 mmol/L (98-107); CREATININE 1.17 mg/dL (0.60-1.30); POTASSIUM 3.88 mmol/L (3.5-5.1); SODIUM 140.2 mmol/L (134.5-145); TOTAL PROTEIN 6.7 g/dL (6.3-8.2)
--- NOTE | 2022-08-29 06:23 | ED.PDOC ---
General ED Provider: Dr. JUANI HICKMAN Chief Complaint: Non-specific Complaint Stated Complaint: Palpitations, heart rate elevated, no CP Time Seen by Provider: 08/28/22 20:24 Mode of Arrival: Walk-In Information Source: Patient and Other Exam Limitations: No limitations Primary Care Provider: ITALIA MARAVILLA Nursing and Triage Documentation Reviewed and Agree: Yes Does patient meet sepsis criteria?: No System Inflammatory Response Syndrome: Not Applicable Sepsis Protocol: For patient's 13 years and over: Temp is 96.8 and below OR 101 and greater Pulse >90 BPM Resp >20/minute Acutely Altered Mental Status Are patient's symptoms suggestive of a new infection, such as: -Pneumonia -Skin, Soft Tissue -Endocarditis -UTI -Bone, Joint Infection -Implantable Device -Acute Abdominal Infection -Wound Infection -Meningitis -Blood Stream Catheter Infection -Unknown Cardiovascular Complaint Exam Palpitations Complaint/Exam Onset/Duration: today Symptoms Are: Still present Timing: Constant Initial Severity: Moderate Current Severity: Moderate Character: Reports Fast and Irregular Aggravating: Reports None Alleviating: Reports None Associated Signs and Symptoms: Denies Lightheadedness, Dizziness, Syncope, Chest pain, Shortness of breath, Diaphoresis, Nausea or Vomiting Related Surgical History: Reports None Cardiac Risk Factors: Reports None Pulmonary Embolism Risk Factors: Reports None Atrial Fibrillation Risk Factors: Reports None Thyroid Exam: Normal Review of Systems Review Of Systems Constitutional: Reports No symptoms Eyes: Reports No symptoms Ears, Nose, Mouth, Throat: Reports No symptoms Respiratory: Reports No symptoms Cardiac: Reports Irregular heart rate and Palpitations GI: Reports No symptoms : Reports No symptoms Musculoskeletal: Reports No symptoms Skin: Reports No symptoms Neurological: Reports No symptoms Endocrine: Reports No symptoms Hematologic/Lymphatic: Reports No symptoms All Other Systems: Reviewed and Negative [facility] Medical History Atrial fibrillation (~08/28/22) Dementia Depression GERD (gastroesophageal reflux disease) Hypothyroidism Social History Smoking and tobacco status: Never smoker Surgical History History of hysterectomy Female Reproductive History Menstrual Hx Hysterectomy: No Hx Tubal Ligation: No Physical Exam Physical Exam Appearance: Reports Well-appearing Ill-appearing: None Pain Distress: None Eyes: Reports PIPPA ENT: Reports Oropharynx normal Neck: Supple Respiratory: Reports Airway patent and Breath sounds clear Cardiovascular: Reports Irregular rhythm and Tachycardia GI/: Reports Soft and Nontender Musculoskeletal: Reports Normal strength and ROM intact Skin: Reports Warm and Dry Neurological: Reports Sensation intact, Motor intact and Alert Psychiatric: Reports Affect appropriate and Mood appropriate Interpretation Radiology Interpretation Radiology Interpretation By: Radiologist Radiology Results: Positive Exam Interpreted: Portable CXR Xray Comments: LLL infiltrate, small, ? 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 Maravilla Time of Notification: 22:15 Physician Notified: Admit to him Critical Care Note Critical Care Note Total Critical Care Time (mins): 30 Comments: For potentially unstable A-fib with RVR, dx and tx. Course Course Hematology/Chemistry: 08/29/22 05:15 08/29/22 05:15 Orders, Labs, Meds: Lab Review 08/28/22 08/28/22 08/28/22 21:05 21:05 22:10 WBC 12.12 H RBC 3.11 L Hgb 9.2 L Hct 29.9 L MCV 96.1 MCH 29.6 MCHC 30.8 L RDW Coeff of Zena 18.9 H Plt Count 159 Neutrophils % (Manual) 79.0 H Lymphocytes % (Manual) 13.0 Monocytes % (Manual) 5.0 Metamyelocytes % 3.0 H Plt Morphology Comment Anisocytosis Not present Sodium 140.5 Potassium 4.12 Chloride 107.5 H Carbon Dioxide 25.8 Anion Gap 11.32 BUN 27.8 H Creatinine 1.24 Estimated GFR (MDRD) 41.00 BUN/Creatinine Ratio 22.41 Glucose 128.6 H Lactic Acid Calcium 9.86 Magnesium 2.03 Total Bilirubin 0.61 AST 49.0 H ALT 26.5 Alkaline Phosphatase 88.4 Troponin I 0.028 NT-Pro-B Natriuret Pep 6390.000 H Total Protein 7.25 Albumin 4.25 Globulin 3.00 Albumin/Globulin Ratio 1.41 TSH 2.990 Influ A Molecular Assay Influ B Molecular Assay SARS CoV-2 RNA Rapid TADEO Negative 08/28/22 08/28/22 22:10 22:48 WBC RBC Hgb Hct MCV MCH MCHC RDW Coeff of Zena Plt Count Neutrophils % (Manual) Lymphocytes % (Manual) Monocytes % (Manual) Metamyelocytes % Plt Morphology Comment Anisocytosis Sodium Potassium Chloride Carbon Dioxide Anion Gap BUN Creatinine Estimated GFR (MDRD) BUN/Creatinine Ratio Glucose Lactic Acid 3.09 H Calcium Magnesium Total Bilirubin AST ALT Alkaline Phosphatase Troponin I NT-Pro-B Natriuret Pep Total Protein Albumin Globulin Albumin/Globulin Ratio TSH Influ A Molecular Assay Negative by naat Influ B Molecular Assay Negative by naat SARS CoV-2 RNA Rapid TADEO Orders Category Date Time Status ADMIT PATIENT INPATIENT .TO [facility] (MONITORED BED) ADMISSION 08/28/22 23:09 Active EKG-(IP & OP ONLY) DAILY CARDIO 08/29/22 06:00 Completed EKG-(IP & OP ONLY) DAILY CARDIO 08/30/22 06:00 Ordered EKG-(IP & OP ONLY) Stat CARDIO 08/28/22 23:05 Completed OXYGEN Routine CARDIO 08/28/22 23:05 Active ACTIVITY .BR with BRP CARE 08/28/22 23:05 Active TELEMETRY MONITORING TELE CARE 08/28/22 23:05 Active VITAL SIGNS Q8HR CARE 08/28/22 23:05 Active CARDIAC DIET DIETARY 08/28/22 Breakfast Ordered ED IV/MEDIPORT/POWERPORT .ONCE EMERGENCY 08/28/22 23:44 Active BLOOD CULTURE Stat LAB 08/28/22 22:33 Received CBC W/ AUTO DIFF Stat LAB 08/28/22 21:05 Completed COMPREHENSIVE METABOLIC PANEL Stat LAB 08/28/22 21:05 Completed COVID [SARS COV-2 RNA RAPID TADEO] Stat LAB 08/28/22 22:10 Completed FLU A & B MOLECULAR [FLU A/B MOLECULAR] Stat LAB 08/28/22 22:10 Completed LACTIC ACID Stat LAB 08/28/22 22:48 Completed MAGNESIUM Stat LAB 08/28/22 21:05 Completed MANUAL DIFFERENTIAL Stat LAB 08/28/22 21:05 Completed NT-PROBNP Stat LAB 08/28/22 21:05 Completed THYROID STIMULATING HORMONE Stat LAB 08/28/22 21:05 Completed TROPONIN I Stat LAB 08/28/22 21:05 Completed URINALYSIS C & S IF INDICATED Stat LAB 08/28/22 23:05 Uncollected 0.9 % Sodium Chloride [Saline Flush] MEDS 08/28/22 23:44 Discontinued 1 syr IVF PRN PRN Acetaminophen [Tylenol] MEDS 08/28/22 23:04 Active 650 mg PO Q4H PRN Alprazolam [Xanax] MEDS 08/28/22 23:18 Discontinued 0.5 mg PO ONCE ONE Diltiazem HCl [Cardizem Cd] MEDS 08/28/22 22:28 Discontinued 120 mg PO ONCE ONE Diltiazem HCl [Cardizem] MEDS 08/28/22 20:39 Discontinued 30 mg PO NOW ONE Levofloxacin [Levaquin] MEDS 08/28/22 22:27 Discontinued 500 mg PO ONCE ONE Nitroglycerin [Nitrostat] MEDS 08/28/22 23:04 Active 0.4 mg SL Q5MIN X 3 DOSES PRN CHEST, 1V AP ONLY Stat RADS 08/28/22 20:28 Completed Medications Generic Name Dose Route Start Last Admin Trade Name Freq PRN Reason Stop Dose Admin Acetaminophen 650 mg 08/28/22 23:04 Acetaminophen 325 Mg Tablet PO Q4H PRN Headache Apixaban 2.5 mg 08/29/22 09:00 Apixaban 5 Mg Tab PO BID LEE ANN Nitroglycerin 0.4 mg 08/28/22 23:04 Nitroglycerin 0.4 Mg Tab.Subl SL Q5MIN X 3 DOSES PRN Chest Pain Quetiapine Fumarate 25 mg 08/29/22 01:00 08/29/22 01:14 Quetiapine Fumarate 25 Mg Tablet PO 25 mg TID LEE ANN Administration Sodium Chloride 1 syr 08/29/22 13:00 0.9% Sodium Chloride 10 Ml Disp.Syrin IVF Q8HR LEE ANN Trazodone HCl 50 mg 08/29/22 01:00 08/29/22 01:14 Trazodone Hcl 50 Mg Tablet PO 50 mg BEDTIME LEE ANN Administration Discontinued Medications Generic Name Dose Route Start Last Admin Trade Name Freq PRN Reason Stop Dose Admin Alprazolam 0.5 mg 08/28/22 23:18 08/28/22 23:25 Alprazolam 0.5 Mg Tablet PO 08/28/22 23:19 0.5 mg ONCE ONE Administration Diltiazem HCl 30 mg 08/28/22 20:39 08/28/22 20:55 Diltiazem Hcl 30 Mg Tablet PO 08/28/22 20:40 30 mg NOW ONE Administration Diltiazem HCl 120 mg 08/28/22 22:28 08/28/22 22:44 Diltiazem Hcl 120 Mg Cap.Er.24h PO 08/28/22 22:29 120 mg ONCE ONE Administration Diltiazem HCl 30 mg 08/29/22 00:59 08/29/22 01:14 Diltiazem Hcl 30 Mg Tablet PO 08/29/22 01:00 30 mg NOW ONE Administration Enoxaparin Sodium 30 mg 08/29/22 02:53 08/29/22 03:06 Enoxaparin Sodium 30 Mg/0.3 Ml Syr SUBCUT 08/29/22 02:54 30 mg ONCE ONE Administration Levofloxacin 500 mg 08/28/22 22:27 08/28/22 22:44 Levofloxacin 500 Mg Tablet PO 08/28/22 22:28 500 mg ONCE ONE Administration Sodium Chloride 1 syr 08/28/22 23:44 0.9% Sodium Chloride 10 Ml Disp.Syrin IVF PRN PRN To flush IV Vital Signs: Temp Pulse Resp BP Pulse Ox 08/28/22 20:05 98.6 F 140 H 24 H 135/89 94 L ANNA Risk Score ANNA Risk Score: Risk Score Odds of by 30D 0 0.1 (0.1-0.2) 1 0.3 (0.2-0.3) 2 0.4 (0.3-0.5) 3 0.7 (0.6-0.9) 4 1.2 (1.0-1.5) 5 2.2 (1.9-2.6) 6 3.0 (2.5-3.6) 7 4.8 (3.8-6.1) Discharge Plan Discharge Patient Disposition: ADMITTED INPATIENT Discharge Problem: Atrial fibrillation with rapid ventricular response Pneumonia Qualifiers: Pneumonia type: due to unspecified organism Laterality: left Lung location: lower lobe of lung Qualified Code(s): J18.9 - Pneumonia, unspecified organism Did you review [place] MACHINIST SET UP?: Not Applicable ED Provider: JUANI HICKMAN Condition: Fair Physician Progress Note: [Patient has new onset A-fib RVR, no ischemia. She has dementia, easily agitated, stays with someone at all times. She does not tolerate IV sites well, we will try and manage this with pills only, saline lock placed as a back-up. Rate starting to come down with oral cardizem. Levaquin PO for pneumonia.Consider CHF.]
[2022-08-29] MEDS ORDERED: ATIVAN IVP ONE (07:40)
[2022-08-29] MEDS ORDERED: XANAX PO ONE (08:33)
[2022-08-29] MEDS: ELIQUIS PO SCH ×2 (09:26→20:18)
[2022-08-29] MEDS: CARDIZEM 125 MG in SODIUM CHLORIDE 100ML 100 ML IV SCH (09:53)
--- NOTE | 2022-08-29 12:36 | CT ---
EXAMINATION: CT of the chest without contrast. HISTORY:Shortness of breath. COMPARISON:Radiograph 08/28/2022. Chest CT 08/25/2019. TECHIQUE: CT acquisition of the chest from the thoracic inlet to the upper abdomen. CT Dose Reducti on Techniques Performed: Yes FINDINGS: THYROID: Normal given technique. AXILLARY OR SUPRACLAVICULAR LYMPHADENOPATHY: Questionable lymphadenopathy in the right supraclavicul ar region versus prominent unopacified venous structures. No axillary lymphadenopathy. ATHEROSCLEROSIS: Aortic arch and great vessel origins. Coronary. AORTA AND MAIN PULMONARY ARTERY: Thoracic aorta appears normal in size. The main pulmonary artery a ppears mildly enlarged. HEART: Multichamber cardiomegaly. No significant pericardial fluid or thickening. MEDIASTINAL LYMPH NODES: Probable mild mediastinal lymphadenopathy with precarinal lymph node measur ing 16 mm. Limited evaluation without intravenous contrast. THORACIC ESOPAGUS: No significant abnormality. PLEURAL EFFUSION: Moderate bilateral low density pleural effusions. Slightly larger on the left. LUNGS: Motion artifact. Apical fibronodular changes. Ground-glass and septal thickening in the lung s. Compressive atelectatic or consolidative changes adjacent to the pleural fluid in the lower lobes . 8 mm nodular opacity along the minor fissure on the right. Could represent fluid or nodule. Central airways patent. UPPER ABDOMEN: Right renal cyst suggested. BODY WALL SOFT TISSUES: No significant abnormality. OSSEOUS STRUCTURES: Degenerative changes in the spine. No significant abnormality. IMPRESSION: Findings are consistent with congestive heart failure and pulmonary edema with moderate left greater than right pleural effusions. Multichamber cardiomegaly with atherosclerosis including coronary atherosclerosis. Enlarged main pulmonary artery suggesting pulmonary arterial hypertension. Compressive atelectatic and consolidative changes adjacent pleural fluid. Correlate clinically to ex clude pulmonary infection. Probable apical fibronodular scarring in the lungs. 8 mm nodular opacity along the right minor fissure. May represent trace sequestered fluid or perifis sural lymph node, however, follow-up CT of the chest is recommended in 3 months to ensure stability o r resolution. Mild mediastinal lymphadenopathy. May be reactive. Again, 3-month follow-up chest CT recommended to ensure stability or resolution. Possible right supraclavicular lymphadenopathy versus unopacified venous structures. Correlate with physical exam and ultrasound. All CT scans are performed using dose optimization techniques as appropriate to the performed exam an d include at least one of the following: Automated exposure control, adjustment of the mA and/or kV according t o size, and the use of iterative reconstruction technique.
[2022-08-29] MEDS ORDERED: LANOXIN IVP ONE (17:13)
[2022-08-29] MEDS ORDERED: LASIX IVP ONE (17:25)
[2022-08-29] MEDS ORDERED: LANOXIN PO ONE (18:13)
[2022-08-29 19:34] LABS: BILIRUBIN,URINE Negative (NEGATIVE); CLARITY,URINE Clear (CLEAR); COLOR,URINE Yellow (YELLOW); GLUCOSE, URINE (UA) Negative (NEGATIVE); KETONES,URINE Negative (NEGATIVE); LEUKOCYTE ESTERASE ,URINE Negative (NEGATIVE); NITRITE,URINE Negative (NEGATIVE); PROTEIN,URINE Trace (NEGATIVE); URINE, BLOOD Negative (NEGATIVE); UROBILINOGEN,URINE 0.2 (0.2)
[2022-08-29 19:45] LABS: AMORPHOUS SEDIMENT,UR TRACE (NOT PRESENT); SQUAMOUS EPITHELIAL CELL,UR NOT PRESENT (0-5); URINE RBC, MICROSCOPIC 0-2 (0-2)
[2022-08-30 05:12] LABS: BASOPHILS # (AUTO) 0.1 K/uL (0-0.2); BASOPHILS % (AUTO) 1.2 % (0.0-3.0); EOSINOPHILS % (AUTO) 0.2 % (0.0-7.0); HEMATOCRIT 30.5 % (37.0-47.0); HEMOGLOBIN 9.4 g/dl (12.0-16.0); IMMATURE GRANULOCYTE # (AUTO) 0.7 (0.0-1.0); IMMATURE GRANULOCYTE % (AUTO) 5.8 % (0.0-5.0); LYMPHOCYTES # (AUTO) 1.6 K/uL (0.60-3.4); LYMPHOCYTES % (AUTO) 13.3 (10.0-50.0); MEAN CORPUSCULAR HEMOGLOBIN 29.5 pg (27.0-31.0); MEAN CORPUSCULAR HGB CONC 30.8 (31.8-35.4); MEAN CORPUSCULAR VOLUME 95.6 fl (81.0-99.0); MONOCYTES # (AUTO) 1.1 K/uL (0.4-2.0); MONOCYTES % (AUTO) 9.3 (0-10); NEUTROPHILS # (AUTO) 8.3 K/ul (2.0-6.9); NEUTROPHILS % (AUTO) 70.2 % (42.2-75.2); PLATELET COUNT 153 10^3/uL (140-440); RDW COEFFICIENT OF VARIATION 18.6 % (11.6-14.8); RED BLOOD COUNT 3.19 10^6/ul (4.20-5.40); WHITE BLOOD COUNT 11.78 K/ul (4.6-10.2)
[2022-08-30 05:23] LABS: ALANINE AMINOTRANSFERASE 25.6 U/L (0-35); ALBUMIN 3.85 g/dL (3.5-5.0); ALKALINE PHOSPHATASE 93.7 U/L (53-141); ASPARTATE AMINO TRANSFERASE 28.6 U/L (14-36); BILIRUBIN,TOTAL 0.74 mg/dL (0.2-1.3); BLOOD UREA NITROGEN 21.7 mg/dL (7-17); CALCIUM 9.32 mg/dL (8.4-10.2); CHLORIDE 105.7 mmol/L (98-107); CREATININE 1.43 mg/dL (0.60-1.30); GLUCOSE 116.5 mg/dL (74-106); POTASSIUM 3.79 mmol/L (3.5-5.1); SODIUM 137.8 mmol/L (134.5-145); TOTAL PROTEIN 6.76 g/dL (6.3-8.2)
[2022-08-30] MEDS: LASIX IVP SCH (05:59)
[2022-08-30] MEDS: LANOXIN PO SCH (08:12)
[2022-08-30] MEDS: CARDIZEM PO SCH ×4 (08:16→20:29)
[2022-08-30] MEDS: ELIQUIS PO SCH ×2 (08:17→20:27)
[2022-08-30] MEDS: SEROQUEL PO SCH ×3 (08:17→20:28)
[2022-08-30] MEDS ORDERED: HALDOL PO PRN (17:18)
[2022-08-30] MEDS: DESYREL PO SCH (20:29)
[2022-08-31] MEDS: LASIX IVP SCH (05:42)
[2022-08-31 06:24] LABS: HEMATOCRIT 33.9 % (37.0-47.0); HEMOGLOBIN 10.6 g/dl (12.0-16.0); MEAN CORPUSCULAR HEMOGLOBIN 29.2 pg (27.0-31.0); MEAN CORPUSCULAR HGB CONC 31.3 (31.8-35.4); MEAN CORPUSCULAR VOLUME 93.4 fl (81.0-99.0); PLATELET COUNT 170 10^3/uL (140-440); RED BLOOD COUNT 3.63 10^6/ul (4.20-5.40); WHITE BLOOD COUNT 9.23 K/ul (4.6-10.2)
[2022-08-31 06:34] LABS: BLOOD UREA NITROGEN 16.2 mg/dL (7-17); CALCIUM 9.34 mg/dL (8.4-10.2); CARBON DIOXIDE 26.4 mmol/L (22-30.0); CHLORIDE 106.2 mmol/L (98-107); CREATININE 1.42 mg/dL (0.60-1.30); GLUCOSE 96.1 mg/dL (74-106); POTASSIUM 3.48 mmol/L (3.5-5.1); SODIUM 139.4 mmol/L (134.5-145)
[2022-08-31 06:51] LABS: ANISOCYTOSIS NOT PRESENT (NOT PRESENT)
--- NOTE | 2022-08-31 07:45 | PCM ---
Chief Complaint Chief Complaint: ramesh james sob History of Present Illness History of Present Illness: This is an 87 yr old ladyh with hx of dementia who presented to the ed with sob and ekg evidence of afib with rvr. She is admitted to my services. Review of Systems Constitutional: Reports Weakness Eyes: Reports No symptoms Ears: Reports No symptoms Nose: Reports No symptoms Throat: Reports No symptoms Mouth: Reports No symptoms Respiratory: Reports Shortness of air Cardiovascular: Reports No symptoms Gastrointestinal: Reports No symptoms Genitourinary: Reports No symptoms Neurological: Reports No symptoms Musculoskeletal: Reports No symptoms Skin: Reports No symptoms Immunology: Reports No symptoms Hematology: Reports No symptoms Endocrine: Reports No symptoms Psychiatric: Reports No symptoms Habits: Denies Tobacco use, Substance use, Alcohol use or Other Allergies Allergies Allergy/AdvReac Type Severity Reaction Status Date / Time lorazepam [From Ativan] AdvReac Severe Anxiety Verified 08/31/22 07:42 [facility] Medical History Atrial fibrillation (~08/28/22) Dementia Depression GERD (gastroesophageal reflux disease) Hypothyroidism Surgical History History of hysterectomy Social History Smoking and tobacco status: Never smoker Medications Medications: Medications Generic Name Dose Route Start Last Admin Trade Name Freq PRN Reason Stop Dose Admin Acetaminophen 650 mg 08/28/22 23:04 08/30/22 04:18 Acetaminophen 325 Mg Tablet PO 650 mg Q4H PRN Administration Headache Apixaban 2.5 mg 08/29/22 09:00 08/30/22 20:27 Apixaban 5 Mg Tab PO 2.5 mg BID LEE ANN Administration Digoxin 125 mcg 08/30/22 09:00 08/30/22 08:12 Digoxin 125 Mcg Tablet PO 125 mcg DAILY LEE ANN Administration Diltiazem HCl 30 mg 08/30/22 09:00 08/30/22 20:29 Diltiazem Hcl 30 Mg Tablet PO 30 mg QID LEE ANN Administration Furosemide 20 mg 08/30/22 06:30 08/31/22 05:42 Furosemide Inj 20 Mg/2 Ml Vial IVP 20 mg QDAC LEE ANN Administration Haloperidol 2 mg 08/30/22 17:18 Haloperidol 0.5 Mg Tablet PO Q6HR PRN agitation/anxiety Nitroglycerin 0.4 mg 08/28/22 23:04 Nitroglycerin 0.4 Mg Tab.Subl SL Q5MIN X 3 DOSES PRN Chest Pain Quetiapine Fumarate 25 mg 08/29/22 01:00 08/30/22 20:28 Quetiapine Fumarate 25 Mg Tablet PO 25 mg TID LEE ANN Administration Sodium Chloride 1 syr 08/29/22 13:00 08/31/22 05:07 0.9% Sodium Chloride 10 Ml Disp.Syrin IVF 1 syr Q8HR LEE ANN Administration Trazodone HCl 50 mg 08/29/22 01:00 08/30/22 20:29 Trazodone Hcl 50 Mg Tablet PO 50 mg BEDTIME LEE ANN Administration Body Composition Height: 5 ft 2 in Weight: 114 lb 7 oz Body Mass Index (BMI): 20.9 Vital Signs Temperature: 96.7 F Pulse Rate: 83 Respiratory Rate: 18 Blood Pressure: 130/67 O2 Sat by Pulse Oximetry: 93 Physical Examination Appearance: Reports No pain distress Ill-appearing: Mild Pain Distress: None Eyes: Reports PIPPA, EOMI and Conjunctiva clear ENT: Reports Ears normal, Nose normal and Oropharynx normal Neck: Supple Respiratory: Reports Airway patent, Breath sounds clear, Breath sounds diminished and Rhonchi Cardiovascular: Reports Pulses normal, No rub, Irregular rhythm and Tachycardia GI/: Reports Soft and Nontender Musculoskeletal: Reports Normal strength, ROM intact, No edema and No calf tenderness Skin: Reports Warm, Dry and Normal color Neurological: Reports Sensation intact, Motor intact, Reflexes intact, Cranial nerves intact and Alert Psychiatric: Reports Affect appropriate and Mood appropriate Lab/Tests/Diagnostic Imaging Lab/Tests/Diagnostic Imaging: Lab Review 08/28/22 08/28/22 08/28/22 21:05 21:05 22:10 WBC 12.12 H RBC 3.11 L Hgb 9.2 L Hct 29.9 L MCV 96.1 MCH 29.6 MCHC 30.8 L RDW Coeff of Zena 18.9 H Plt Count 159 Immature Gran % (Auto) Neut % (Auto) Lymph % (Auto) Wilkes % (Auto) Eos % (Auto) Baso % (Auto) Neut # (Auto) Lymph # (Auto) Wilkes # (Auto) Eos # (Auto) Baso # (Auto) Immature Gran # (Auto) Neutrophils % (Manual) 79.0 H Lymphocytes % (Manual) 13.0 Monocytes % (Manual) 5.0 Eosinophils % (Manual) Metamyelocytes % 3.0 H Reactive Lymphocytes Plt Morphology Comment Anisocytosis Not present Sodium 140.5 Potassium 4.12 Chloride 107.5 H Carbon Dioxide 25.8 Anion Gap 11.32 BUN 27.8 H Creatinine 1.24 Estimated GFR (MDRD) 41.00 BUN/Creatinine Ratio 22.41 Glucose 128.6 H Lactic Acid Calcium 9.86 Magnesium 2.03 Total Bilirubin 0.61 AST 49.0 H ALT 26.5 Alkaline Phosphatase 88.4 Troponin I 0.028 NT-Pro-B Natriuret Pep 6390.000 H Total Protein 7.25 Albumin 4.25 Globulin 3.00 Albumin/Globulin Ratio 1.41 TSH 2.990 Free T4 Urine Color Urine Clarity Urine pH Ur Specific Randall Urine Protein Urine Glucose (UA) Urine Ketones Urine Blood Urine Nitrite Urine Bilirubin Urine Urobilinogen Ur Leukocyte Esterase Urine Microscopic RBC Ur Squamous Epith Cells Amorphous Sediment Digoxin Influ A Molecular Assay Influ B Molecular Assay SARS CoV-2 RNA Rapid TADEO Negative 08/28/22 08/28/22 08/29/22 22:10 22:48 05:15 WBC 13.51 H RBC 3.05 L Hgb 9.0 L Hct 29.2 L MCV 95.7 MCH 29.5 MCHC 30.8 L RDW Coeff of Zena 18.6 H Plt Count 144 Immature Gran % (Auto) 5.8 H Neut % (Auto) 73.3 Lymph % (Auto) 11.9 Wilkes % (Auto) 8.2 Eos % (Auto) 0.1 Baso % (Auto) 0.7 Neut # (Auto) 9.9 H Lymph # (Auto) 1.6 Wilkes # (Auto) 1.1 Eos # (Auto) 0.0 Baso # (Auto) 0.1 Immature Gran # (Auto) 0.8 Neutrophils % (Manual) Lymphocytes % (Manual) Monocytes % (Manual) Eosinophils % (Manual) Metamyelocytes % Reactive Lymphocytes Plt Morphology Comment Anisocytosis Sodium Potassium Chloride Carbon Dioxide Anion Gap BUN Creatinine Estimated GFR (MDRD) BUN/Creatinine Ratio Glucose Lactic Acid 3.09 H Calcium Magnesium Total Bilirubin AST ALT Alkaline Phosphatase Troponin I NT-Pro-B Natriuret Pep Total Protein Albumin Globulin Albumin/Globulin Ratio TSH Free T4 Urine Color Urine Clarity Urine pH Ur Specific Randall Urine Protein Urine Glucose (UA) Urine Ketones Urine Blood Urine Nitrite Urine Bilirubin Urine Urobilinogen Ur Leukocyte Esterase Urine Microscopic RBC Ur Squamous Epith Cells Amorphous Sediment Digoxin Influ A Molecular Assay Negative by naat Influ B Molecular Assay Negative by naat SARS CoV-2 RNA Rapid TADEO 08/29/22 08/29/22 08/29/22 05:15 05:15 05:15 WBC RBC Hgb Hct MCV MCH MCHC RDW Coeff of Zena Plt Count Immature Gran % (Auto) Neut % (Auto) Lymph % (Auto) Wilkes % (Auto) Eos % (Auto) Baso % (Auto) Neut # (Auto) Lymph # (Auto) Wilkes # (Auto) Eos # (Auto) Baso # (Auto) Immature Gran # (Auto) Neutrophils % (Manual) Lymphocytes % (Manual) Monocytes % (Manual) Eosinophils % (Manual) Metamyelocytes % Reactive Lymphocytes Plt Morphology Comment Anisocytosis Sodium 140.2 Potassium 3.88 Chloride 108.8 H Carbon Dioxide 24.7 Anion Gap 10.58 BUN 26.5 H Creatinine 1.17 Estimated GFR (MDRD) 44.00 BUN/Creatinine Ratio 22.64 Glucose 100.0 Lactic Acid Calcium 9.46 Magnesium Total Bilirubin 0.74 AST 30.7 ALT 25.0 Alkaline Phosphatase 91.5 Troponin I NT-Pro-B Natriuret Pep Total Protein 6.70 Albumin 3.85 Globulin 2.85 Albumin/Globulin Ratio 1.35 TSH 2.510 Free T4 1.98 Urine Color Urine Clarity Urine pH Ur Specific Randall Urine Protein Urine Glucose (UA) Urine Ketones Urine Blood Urine Nitrite Urine Bilirubin Urine Urobilinogen Ur Leukocyte Esterase Urine Microscopic RBC Ur Squamous Epith Cells Amorphous Sediment Digoxin Influ A Molecular Assay Influ B Molecular Assay SARS CoV-2 RNA Rapid TADEO 08/29/22 08/30/22 08/30/22 19:15 04:50 04:50 WBC 11.78 H RBC 3.19 L Hgb 9.4 L Hct 30.5 L MCV 95.6 MCH 29.5 MCHC 30.8 L RDW Coeff of Zena 18.6 H Plt Count 153 Immature Gran % (Auto) 5.8 H Neut % (Auto) 70.2 Lymph % (Auto) 13.3 Wilkes % (Auto) 9.3 Eos % (Auto) 0.2 Baso % (Auto) 1.2 Neut # (Auto) 8.3 H Lymph # (Auto) 1.6 Wilkes # (Auto) 1.1 Eos # (Auto) 0.0 Baso # (Auto) 0.1 Immature Gran # (Auto) 0.7 Neutrophils % (Manual) Lymphocytes % (Manual) Monocytes % (Manual) Eosinophils % (Manual) Metamyelocytes % Reactive Lymphocytes Plt Morphology Comment Anisocytosis Sodium 137.8 Potassium 3.79 Chloride 105.7 Carbon Dioxide 25.0 Anion Gap 10.89 BUN 21.7 H Creatinine 1.43 H Estimated GFR (MDRD) 35.00 BUN/Creatinine Ratio 15.17 Glucose 116.5 H Lactic Acid Calcium 9.32 Magnesium Total Bilirubin 0.74 AST 28.6 ALT 25.6 Alkaline Phosphatase 93.7 Troponin I NT-Pro-B Natriuret Pep Total Protein 6.76 Albumin 3.85 Globulin 2.91 Albumin/Globulin Ratio 1.32 TSH Free T4 Urine Color Yellow Urine Clarity Clear Urine pH 6.0 Ur Specific Randall 1.025 Urine Protein Trace H Urine Glucose (UA) Negative Urine Ketones Negative Urine Blood Negative Urine Nitrite Negative Urine Bilirubin Negative Urine Urobilinogen 0.2 Ur Leukocyte Esterase Negative Urine Microscopic RBC 0-2 Ur Squamous Epith Cells Not present Amorphous Sediment Trace Digoxin Influ A Molecular Assay Influ B Molecular Assay SARS CoV-2 RNA Rapid TADEO 08/31/22 08/31/22 08/31/22 06:19 06:19 06:19 WBC 9.23 RBC 3.63 L Hgb 10.6 L Hct 33.9 L MCV 93.4 MCH 29.2 MCHC 31.3 L RDW Coeff of Zena 18.0 H Plt Count 170 Immature Gran % (Auto) Neut % (Auto) Lymph % (Auto) Wilkes % (Auto) Eos % (Auto) Baso % (Auto) Neut # (Auto) Lymph # (Auto) Wilkes # (Auto) Eos # (Auto) Baso # (Auto) Immature Gran # (Auto) Neutrophils % (Manual) 73.0 Lymphocytes % (Manual) 17.0 Monocytes % (Manual) 6.0 Eosinophils % (Manual) 1.0 Metamyelocytes % Reactive Lymphocytes 3.0 Plt Morphology Comment Anisocytosis Not present Sodium 139.4 Potassium 3.48 L Chloride 106.2 Carbon Dioxide 26.4 Anion Gap 10.28 BUN 16.2 Creatinine 1.42 H Estimated GFR (MDRD) 35.00 BUN/Creatinine Ratio 11.40 Glucose 96.1 Lactic Acid Calcium 9.34 Magnesium Total Bilirubin AST ALT Alkaline Phosphatase Troponin I NT-Pro-B Natriuret Pep Total Protein Albumin Globulin Albumin/Globulin Ratio TSH Free T4 Urine Color Urine Clarity Urine pH Ur Specific Randall Urine Protein Urine Glucose (UA) Urine Ketones Urine Blood Urine Nitrite Urine Bilirubin Urine Urobilinogen Ur Leukocyte Esterase Urine Microscopic RBC Ur Squamous Epith Cells Amorphous Sediment Digoxin 0.49 L Influ A Molecular Assay Influ B Molecular Assay SARS CoV-2 RNA Rapid TADEO Orders Category Date Time Status ADMIT PATIENT INPATIENT .TO [facility] (MONITORED BED) ADMISSION 08/28/22 23:09 Active ECHOCARDIOGRAM 2D-M MODE Routine CARDIO 08/29/22 07:39 Completed EKG-(IP & OP ONLY) DAILY CARDIO 08/29/22 06:00 Completed EKG-(IP & OP ONLY) DAILY CARDIO 08/30/22 06:00 Completed EKG-(IP & OP ONLY) Routine CARDIO 08/31/22 06:00 Completed EKG-(IP & OP ONLY) Stat CARDIO 08/28/22 23:05 Completed OXYGEN Routine CARDIO 08/28/22 23:05 Active ACTIVITY .BR with BRP CARE 08/28/22 23:05 Active Notify RT of Treatment ONCE CARE 08/31/22 05:00 Active TELEMETRY MONITORING TELE CARE 08/28/22 23:05 Active VITAL SIGNS Q4HR CARE 08/28/22 23:05 Active CARDIAC DIET DIETARY 08/28/22 Breakfast Ordered GUEST TRAY DIETARY 08/29/22 Breakfast Ordered ED IV/MEDIPORT/POWERPORT .ONCE EMERGENCY 08/28/22 23:44 Active BASIC METABOLIC PANEL Routine LAB 08/31/22 06:19 Completed BLOOD CULTURE Stat LAB 08/28/22 22:48 Results CBC W/ AUTO DIFF DAILY@0600 LAB 08/29/22 05:15 Completed CBC W/ AUTO DIFF DAILY@0600 LAB 08/30/22 04:50 Completed CBC W/ AUTO DIFF Routine LAB 08/31/22 06:19 Completed CBC W/ AUTO DIFF Stat LAB 08/28/22 21:05 Completed COMPREHENSIVE METABOLIC PANEL DAILY@0600 LAB 08/29/22 05:15 Completed COMPREHENSIVE METABOLIC PANEL DAILY@0600 LAB 08/30/22 04:50 Completed COMPREHENSIVE METABOLIC PANEL Stat LAB 08/28/22 21:05 Completed COVID [SARS COV-2 RNA RAPID TADEO] Stat LAB 08/28/22 22:10 Completed DIGOXIN Routine LAB 08/31/22 06:19 Completed FLU A & B MOLECULAR [FLU A/B MOLECULAR] Stat LAB 08/28/22 22:10 Completed FREE T4 (FREE THYROXINE) Routine LAB 08/29/22 05:15 Completed LACTIC ACID Stat LAB 08/28/22 22:48 Completed MAGNESIUM Stat LAB 08/28/22 21:05 Completed MANUAL DIFFERENTIAL Routine LAB 08/31/22 06:19 Completed MANUAL DIFFERENTIAL Stat LAB 08/28/22 21:05 Completed NT-PROBNP Stat LAB 08/28/22 21:05 Completed THYROID STIMULATING HORMONE Stat LAB 08/28/22 21:05 Completed TROPONIN I Stat LAB 08/28/22 21:05 Completed TSH [THYROID STIMULATING HORMONE] Routine LAB 08/29/22 05:15 Completed URINALYSIS C & S IF INDICATED Stat LAB 08/29/22 19:15 Completed 0.9 % Sodium Chloride [Saline Flush] MEDS 08/28/22 23:44 Discontinued 1 syr IVF PRN PRN 0.9 % Sodium Chloride [Saline Flush] MEDS 08/29/22 13:00 Active 1 syr IVF Q8HR Acetaminophen [Tylenol] MEDS 08/28/22 23:04 Active 650 mg PO Q4H PRN Alprazolam [Xanax] MEDS 08/28/22 23:18 Discontinued 0.5 mg PO ONCE ONE Alprazolam [Xanax] MEDS 08/29/22 08:33 Discontinued 0.5 mg PO ONCE ONE Apixaban [Eliquis] MEDS 08/29/22 09:00 Active 2.5 mg PO BID Digoxin [Lanoxin] MEDS 08/30/22 09:00 Active 125 mcg PO DAILY Digoxin [Lanoxin] MEDS 08/29/22 18:13 Discontinued 250 mcg PO ONCE ONE Diltiazem HCl [Cardizem Cd] MEDS 08/28/22 22:28 Discontinued 120 mg PO ONCE ONE Diltiazem HCl [Cardizem] MEDS 08/28/22 20:39 Discontinued 30 mg PO NOW ONE Diltiazem HCl [Cardizem] MEDS 08/29/22 00:59 Discontinued 30 mg PO NOW ONE Diltiazem HCl [Cardizem] MEDS 08/30/22 09:00 Active 30 mg PO QID Diltiazem HCl [Cardizem] 125 mg MEDS 08/29/22 08:00 Discontinued 0.9 % Sodium Chloride [Sodium Chloride 100Ml] 100 ml IV TITRATION Enoxaparin Sodium [Lovenox] MEDS 08/29/22 02:53 Discontinued 30 mg SUBCUT ONCE ONE Furosemide [Lasix] MEDS 08/29/22 17:25 Discontinued 20 mg IVP ONCE ONE Furosemide [Lasix] MEDS 08/30/22 06:30 Active 20 mg IVP QDAC Haloperidol [Haldol] MEDS 08/30/22 17:18 Active 2 mg PO Q6HR PRN Levofloxacin [Levaquin] MEDS 08/28/22 22:27 Discontinued 500 mg PO ONCE ONE Nitroglycerin [Nitrostat] MEDS 08/28/22 23:04 Active 0.4 mg SL Q5MIN X 3 DOSES PRN Quetiapine Fumarate [Seroquel] MEDS 08/29/22 01:00 Active 25 mg PO TID Trazodone HCl [Desyrel] MEDS 08/29/22 01:00 Active 50 mg PO BEDTIME RESUSCITATION STATUS Routine OTHERS 08/29/22 01:25 Ordered CHEST, 1V AP ONLY Stat RADS 08/28/22 20:[address] CHEST W/O CONTRAST Routine RADS 08/29/22 07:38 Completed CXR [CHEST, 1V AP ONLY] Routine RADS 08/31/22 06:00 Ordered Medications Generic Name Dose Route Start Last Admin Trade Name Freq PRN Reason Stop Dose Admin Acetaminophen 650 mg 08/28/22 23:04 08/30/22 04:18 Acetaminophen 325 Mg Tablet PO 650 mg Q4H PRN Administration Headache Apixaban 2.5 mg 08/29/22 09:00 08/30/22 20:27 Apixaban 5 Mg Tab PO 2.5 mg BID LEE ANN Administration Digoxin 125 mcg 08/30/22 09:00 08/30/22 08:12 Digoxin 125 Mcg Tablet PO 125 mcg DAILY LEE ANN Administration Diltiazem HCl 30 mg 08/30/22 09:00 08/30/22 20:29 Diltiazem Hcl 30 Mg Tablet PO 30 mg QID LEE ANN Administration Furosemide 20 mg 08/30/22 06:30 08/31/22 05:42 Furosemide Inj 20 Mg/2 Ml Vial IVP 20 mg QDAC LEE ANN Administration Haloperidol 2 mg 08/30/22 17:18 Haloperidol 0.5 Mg Tablet PO Q6HR PRN agitation/anxiety Nitroglycerin 0.4 mg 08/28/22 23:04 Nitroglycerin 0.4 Mg Tab.Subl SL Q5MIN X 3 DOSES PRN Chest Pain Quetiapine Fumarate 25 mg 08/29/22 01:00 08/30/22 20:28 Quetiapine Fumarate 25 Mg Tablet PO 25 mg TID LEE ANN Administration Sodium Chloride 1 syr 08/29/22 13:00 08/31/22 05:07 0.9% Sodium Chloride 10 Ml Disp.Syrin IVF 1 syr Q8HR LEE ANN Administration Trazodone HCl 50 mg 08/29/22 01:00 08/30/22 20:29 Trazodone Hcl 50 Mg Tablet PO 50 mg BEDTIME LEE ANN Administration Discontinued Medications Generic Name Dose Route Start Last Admin Trade Name Freq PRN Reason Stop Dose Admin Alprazolam 0.5 mg 08/28/22 23:18 08/28/22 23:25 Alprazolam 0.5 Mg Tablet PO 08/28/22 23:19 0.5 mg ONCE ONE Administration Alprazolam 0.5 mg 08/29/22 08:33 08/29/22 09:27 Alprazolam 0.5 Mg Tablet PO 08/29/22 08:34 0.5 mg ONCE ONE Administration Digoxin 250 mcg 08/29/22 18:13 08/29/22 18:53 Digoxin 125 Mcg Tablet PO 08/29/22 18:14 250 mcg ONCE ONE Administration Diltiazem HCl 30 mg 08/28/22 20:39 08/28/22 20:55 Diltiazem Hcl 30 Mg Tablet PO 08/28/22 20:40 30 mg NOW ONE Administration Diltiazem HCl 120 mg 08/28/22 22:28 08/28/22 22:44 Diltiazem Hcl 120 Mg Cap.Er.24h PO 08/28/22 22:29 120 mg ONCE ONE Administration Diltiazem HCl 30 mg 08/29/22 00:59 08/29/22 01:14 Diltiazem Hcl 30 Mg Tablet PO 08/29/22 01:00 30 mg NOW ONE Administration Enoxaparin Sodium 30 mg 08/29/22 02:53 08/29/22 03:06 Enoxaparin Sodium 30 Mg/0.3 Ml Syr SUBCUT 08/29/22 02:54 30 mg ONCE ONE Administration Furosemide 20 mg 08/29/22 17:25 08/29/22 18:09 Furosemide Inj 20 Mg/2 Ml Vial IVP 08/29/22 17:26 20 mg ONCE ONE Administration Diltiazem HCl 125 mg/ Sodium 125 mls @ 10 mls/hr 08/29/22 08:00 08/30/22 00:05 Chloride IV Infused TITRATION LEE ANN Titration Protocol 10 MG/HR Levofloxacin 500 mg 08/28/22 22:27 08/28/22 22:44 Levofloxacin 500 Mg Tablet PO 08/28/22 22:28 500 mg ONCE ONE Administration Sodium Chloride 1 syr 08/28/22 23:44 0.9% Sodium Chloride 10 Ml Disp.Syrin IVF PRN PRN To flush IV Assessment (1) Atrial fibrillation with rapid ventricular response: Status: Acute Code(s): I48.91 - Unspecified atrial fibrillation SNOMED Code(s): 590044808322283 (2) CHF (congestive heart failure): Status: Acute Code(s): I50.9 - Heart failure, unspecified SNOMED Code(s): 40137196 Plan Plan: will start cardizem drip, anticoagulation, telemetry monitoring, check echo--d/w with cassy Billingsley---DNR status---see orders
--- NOTE | 2022-08-31 07:48 | PCM.PROG ---
Date Seen by Provider: 08/30/22 Time Seen by Provider: 17:00 Subjective: nurses note her hr is controlled--will not leave on telemetry--- Objective: Vitals: T=96.7 F, P=83, R=18, UP=296/67, SPO2=93 HEENT: [perrl] Neck: [supple] Lungs: [occ rhonchi] CVS: [irrr] Abdomen: [soft nt] Extremities: [intact] Neurological: baseline[] Skin: [] Lab/Tests/Diagnostic Imaging: [] (1) Atrial fibrillation with rapid ventricular response: Status: Acute Code(s): I48.91 - Unspecified atrial fibrillation SNOMED Code(s): 595945915726731 (2) CHF (congestive heart failure): Status: Acute Code(s): I50.9 - Heart failure, unspecified SNOMED Code(s): 03746445 Plan: continue anticoagulation, telemetry monitoring, check labs--continue diuresis
--- NOTE | 2022-08-31 07:50 | PCM.PROG ---
Date Seen by Provider: 08/31/22 Time Seen by Provider: 07:48 Subjective: sitter concerned she is not receiving her melatonin or her miralax or colace Objective: Vitals: T=96.7 F, P=83, R=18, SD=261/67, SPO2=93 HEENT: [] Neck: [supple] Lungs: [clear] CVS: irr Abdomen: [soft nt] Extremities: [] Neurological: [inact] Skin: [] Lab/Tests/Diagnostic Imaging: [] (1) Atrial fibrillation with rapid ventricular response: Status: Acute Code(s): I48.91 - Unspecified atrial fibrillation SNOMED Code(s): 032921164269233 (2) CHF (congestive heart failure): Status: Acute Code(s): I50.9 - Heart failure, unspecified SNOMED Code(s): 28557032 Plan: continue telemtry monitoring, anticoagulation, diuresis, check cxr in am
[2022-08-31] MEDS ORDERED: K-DUR PO STA (07:51)
--- NOTE | 2022-08-31 08:35 | DI ---
EXAM: Chest one view, frontal view only. HISTORY: Congestive heart failure follow-up. COMPARISON: 08/29/2022, 08/28/2022. FINDINGS: Heart is enlarged. Vascular congestion is not present. Left greater than right pleural e ffusions and left basilar consolidation noted. Findings may have mildly improved. No new opacity. No pneumothorax. No acute osseous abnormality.. IMPRESSION: Left greater than right pleural effusions and left basilar consolidation which may have slightly impr jennifer from prior.
[2022-08-31] MEDS: LANOXIN PO SCH (09:00)
[2022-08-31] MEDS: CARDIZEM PO SCH ×4 (09:00→20:10)
[2022-08-31] MEDS: SEROQUEL PO SCH ×3 (09:00→20:12)
[2022-08-31] MEDS: ELIQUIS PO SCH ×2 (09:01→20:10)
[2022-08-31] MEDS: CARDIZEM 125 MG in SODIUM CHLORIDE 100ML 100 ML IV SCH (10:34)
[2022-08-31] MEDS ORDERED: GEODON IM ONE (19:15)
[2022-08-31] MEDS: DESYREL PO SCH (20:12)
[2022-09-01 05:09] LABS: BASOPHILS # (AUTO) 0.1 K/uL (0-0.2); BASOPHILS % (AUTO) 1.2 % (0.0-3.0); EOSINOPHILS % (AUTO) 0.1 % (0.0-7.0); HEMATOCRIT 33.9 % (37.0-47.0); HEMOGLOBIN 10.9 g/dl (12.0-16.0); IMMATURE GRANULOCYTE # (AUTO) 0.5 (0.0-1.0); IMMATURE GRANULOCYTE % (AUTO) 3.9 % (0.0-5.0); LYMPHOCYTES # (AUTO) 1.6 K/uL (0.60-3.4); LYMPHOCYTES % (AUTO) 13.7 (10.0-50.0); MEAN CORPUSCULAR HEMOGLOBIN 29.9 pg (27.0-31.0); MEAN CORPUSCULAR HGB CONC 32.2 (31.8-35.4); MEAN CORPUSCULAR VOLUME 93.1 fl (81.0-99.0); MONOCYTES # (AUTO) 1.2 K/uL (0.4-2.0); MONOCYTES % (AUTO) 10.2 (0-10); NEUTROPHILS # (AUTO) 8.5 K/ul (2.0-6.9); NEUTROPHILS % (AUTO) 70.9 % (42.2-75.2); PLATELET COUNT 177 10^3/uL (140-440); RED BLOOD COUNT 3.64 10^6/ul (4.20-5.40); WHITE BLOOD COUNT 11.94 K/ul (4.6-10.2)
[2022-09-01 05:15] VITALS: BP 138/67; TEMP 97.2
[2022-09-01 05:22] LABS: BLOOD UREA NITROGEN 18.4 mg/dL (7-17); CALCIUM 9.35 mg/dL (8.4-10.2); CARBON DIOXIDE 25.4 mmol/L (22-30.0); CHLORIDE 106.6 mmol/L (98-107); CREATININE 1.41 mg/dL (0.60-1.30); GLUCOSE 91.9 mg/dL (74-106); POTASSIUM 4.01 mmol/L (3.5-5.1); SODIUM 139.9 mmol/L (134.5-145)
--- NOTE | 2022-09-01 05:37 | PCM.PROG ---
carlito is doing much better--heart rate is controlled--cxr shows improvment in pleural effusion---will discharge with eliquis, cardizem and lanoxin and follow up in ofice in 2 weeks
--- NOTE | 2022-09-01 05:40 | PCM.DC ---
Final Diagnosis: afib with rvr Physical Exam Appearance: Well-appearing Ill-appearing: None Pain Distress: None Eyes: PIPPA, EOMI and Conjunctiva clear ENT: Ears normal, Nose normal and Oropharynx normal Neck: Supple Respiratory: Airway patent, Breath sounds clear, Breath sounds equal and Breath sounds diminished Cardiovascular: Pulses normal, No rub, No murmur and Irregular rhythm GI/: Soft, Nontender, No masses and Bowel sounds normal Musculoskeletal: Normal strength, ROM intact, No edema and No calf tenderness Skin: Warm, Dry and Normal color Neurological: Sensation intact, Motor intact, Reflexes intact, Cranial nerves intact, Alert and Disoriented Psychiatric: Affect appropriate (1) Atrial fibrillation with rapid ventricular response: Status: Acute Code(s): I48.91 - Unspecified atrial fibrillation SNOMED Code(s): 199156203440884 (2) CHF (congestive heart failure): Status: Acute Code(s): I50.9 - Heart failure, unspecified SNOMED Code(s): 69207665 Reason for Hospitalization: atrial fibrilation wiht rvr Prognosis/Condition at Discharge: fair Medications at Discharge: see nursing list Follow-ups: 2 weeks in my office Discharge Disposition: Assisted Living Facility Hospital Course: she tolerating rate controlling meds and eliquis well without bleeding or syncope--her behavior became violent at times requiring pharmacy intervention(juan)--echo did not reveal any blood clots Plan: discharge back to assisted living and see me in office in follow up
[2022-09-01] MEDS ORDERED: CARDIZEM CD PO SCH (09:00)
[2022-09-01] MEDS: ELIQUIS PO SCH (09:44)
[2022-09-01] MEDS: SEROQUEL PO SCH (09:45)
[2022-09-01] MEDS: LANOXIN PO SCH (09:47)
[2022-09-01] MEDS ORDERED: CARDIZEM PO SCH (10:00)
--- NOTE | 2022-09-04 08:01 | ECHO2D ---
Date of Exam: 08/29/2022 Ordering Physician: DR. ITALIA CARRERA Room #: 101 Reason for Echo: NEW ONSET ATRIAL FIBRILLATION M-Mode Normal Adult Results LV Dimensions Normal Adult Results AoV Opening excursions >1.6 >1.6 LVEDD-base- 3.5-5.8 4.2 Ao root dimensions 2.0-3.7 3.6 LVESD-base- 3.1-4.6 L. Atrium dimensions 1.9-3.8 4.7 Post. Wall thickness 0.8-1.1 1.2 IV septum (thickness) 0.7-1.2 1.2 Post. Wall excursion 0.72-1.3 NORMAL Septal motion 0.1 Systolic motion R. Ventricular cavity 1.5-2.0 NORMAL LVEF 60% 35% Paradoxical septal wall motion NORMAL 2-D : ENLARGED LEFT ATRIAL CAVITY--AKINETIC SEPTAL WALL, NORMAL LEFT VENTRICLE SIZE, CALCIFIC AORTIC VALVE--NO STENOSIS, NO THROMBUS, TRACE EFFUSION NOT COOPERATIVE, DEMENTIA, DIFFICULT STUDY M-MODE: MV: NORMAL AV: CALCIFIC LEAFLETS NO STENOSIS TV: NORMAL PV: NORMAL CHAMBER SIZE: ENLARGED LEFT ATRIAL CAVITY WALL MOTION: AKINETIC SEPTAL WALL PERICARDIUM: TRACE TO MILD PERICARDIAL EFFUSION INTERPRETATION: 1. BORDERLINE LEFT VENTRICLE HYPERTROPHY WITH ENLARGED LEFT ATRIAL CAVITY (4.7 CM) 2. AKINETIC SEPTUM--EJECTION FRACTION 35% 3. CALCIFIC AORTIC VALVE--NO STENOSIS 4. TRACE TO MILD PERICARDIAL EFFUSION 5. NO THROMBUS MTDD
== END 2022-09-01 10:50 | disposition home or self-care (01) | DRG 308 ==
LOC: ED 20:00 → MEDSURG A 23:44
PROVIDERS: ADMIT Family Medicine; ATTEND Family Medicine
DX: Z79.899 Other long term (current) drug therapy; F02.811 Dementia in other diseases classified elsewhere, unspecified severity, with agitation; Z20.822 Contact with and (suspected) exposure to COVID-19; F32.A Depression, unspecified; I50.9 Heart failure, unspecified; J18.9 Pneumonia, unspecified organism; Z51.81 Encounter for therapeutic drug level monitoring; Z66 Do not resuscitate; I48.91 Unspecified atrial fibrillation; R06.02 Shortness of breath; K21.9 Gastro-esophageal reflux disease without esophagitis; E03.9 Hypothyroidism, unspecified